=== PATIENT | female | born 1940 | race Hispanic/Latino ===

== ENCOUNTER 2016-10-02 22:36 | Emergency (ER) | payer MEDICARE ==
[2016-10-02 22:51] VITALS: BMI 32.2
[2016-10-02 22:56] VITALS: TEMP 99.2
--- NOTE | 2016-10-02 23:12 | ED PDOC ---
Arrival/HPI - General Chief Complaint: Weakness/Neurological Deficit Time Seen by Provider: 10/02/16 22:51 Historian: Patient - History of Present Illness Narrative History of Present Illness (Text): 10/02/16 22:51 Samanta Dill is a 76 year old female, whose past medical history includes arthritis and a stent, who presents to the emergency department complaining of 3 days duration of intermittent fevers accompanied by generalized weakness. Patient notes that she last took Tylenol 15:00 today. Patient denies shortness of breath, chest pain, dyspnea on exertion, or any other complaints at this time. PMD: Dr. Montes De Oca Time/Duration: < week (3 days) Symptom Onset: Gradual Symptom Course: Unchanged, Intermittent Severity Level: Mild Activities at Onset: Rest Context: Home Past Medical History - Provider Review Nursing Documentation Reviewed: Yes - Infectious Disease Hx of Infectious Diseases: None - Tetanus Immunization Tetanus Immunization: Unknown - Cardiac Hx Cardiac Disorders: Yes (CAD) Hx Hypertension: Yes Other/Comment: PT HAD STENT PLCED IN, [place] 2012 X 1 - Pulmonary Hx Respiratory Disorders: Yes Hx Chronic Obstructive Pulmonary Disease (COPD): Yes Other/Comment: SMOKES CIGARETTES H/O <PPD - Neurological Hx Neurological Disorder: Yes - HEENT Hx HEENT Disorder: Yes Hx Cataracts: Yes (RIGHT) - Renal Hx Renal Disorder: No - Endocrine/Metabolic Hx Endocrine Disorders: No - Hematological/Oncological Hx Blood Disorders: No - Integumentary Hx Dermatological Disorder: No - Musculoskeletal/Rheumatological Hx Musculoskeletal Disorders: Yes (RA) Hx Back Pain: Yes Hx Falls: Yes Other/Comment: RIGHT HIP REPLACMENT,BILATERAL KNEE REPLACEMENT - Gastrointestinal Hx Gastrointestinal Disorders: Yes (COLON CANCER/RECTAL CA) - Genitourinary/Gynecological Hx Genitourinary Disorders: No - Psychiatric Hx Psychophysiologic Disorder: No Hx Emotional Abuse: No Hx Physical Abuse: No Hx Substance Use: No Other/Comment: H/O OF SMOKING CIGARETTES QUIT 20 YRS AGO < PPD - Surgical History Hx Appendectomy: Yes Hx Cholecystectomy: Yes (patient unsure) Other/Comment: colon resection, bilaterAl knee replacement, rt hip replacement/ elvin r femur - Anesthesia Hx Anesthesia: Yes Hx Anesthesia Reactions: No - Suicidal Assessment Feels Threatened In Home Enviroment: No Family/Social History - Physician Review Nursing Documentation Reviewed: Yes Family/Social History: No Known Family HX Smoking Status: Former Smoker Hx Alcohol Use: No Hx Substance Use: No Hx Substance Use Treatment: No Allergies/Home Meds Allergies/Adverse Reactions: Allergies minocycline Allergy (Verified 07/04/15 19:43) RASH facial pigmentation Home Medications: Home Meds Medication Instructions Recorded Confirmed Atenolol 100 mg PO DAILY 12/03/11 03/26/16 Aspirin [Aspirin Chewable] 81 mg PO DAILY 04/23/13 03/26/16 Dexlansoprazole [Dexilant] 60 mg PO DAILY 04/23/13 03/26/16 Aliskiren/Amlodipine Besylate 10 mg PO DAILY 07/04/15 03/26/16 Ergocalciferol (Vitamin D2) 5,000 iu PO QWK 07/04/15 03/26/16 Folic Acid 1 mg PO DAILY 07/04/15 03/26/16 Levothyroxine Sodium 100 mcg PO DAILY 07/04/15 03/26/16 Methotrexate 25 mg PO JUAQUIN 07/04/15 03/26/16 Risedronate Sodium 150 mg PO Q30D 07/04/15 03/26/16 Simvastatin 20 mg PO DAILY 07/04/15 03/26/16 Fluticasone/Vilanterol [Breo 1 puff IH DAILY 10/03/16 10/03/16 Ellipta 100-25 Mcg INH] Teriparatide [Forteo] 20 mcg SC DAILY 10/03/16 10/03/16 Umeclidinium [place] [Incruse 1 puff IH DAILY 10/03/16 10/03/16 Ellipta] Physical Exam - Physical Exam Narrative Physical Exam (Text): - Review of Systems Constitutional: Intermittent fevers. Generalized Weakness. absent: Fatigue, Weight Change Eyes: Normal ENT: Normal Respiratory: Normal absent: SOB, Cough, Sputum Cardiovascular: Normal absent: Chest pain, Palpitations, Syncope Gastrointestinal: Normal absent: Abdominal pain, Diarrhea, Nausea, Vomiting Genitourinary: Normal. absent: Dysuria, Frequency, Hematuria Musculoskeletal: Normal. absent: Arthralgias, Back Pain, Neck Pain Skin: Normal Neurological: Normal absent: Focal Weakness Endocrine: Normal Hemo/Lymphatic: Normal Psychiatric: Normal - Physical exam Patient appears age appropriate, speaking full sentences without difficulty - Systems Exam Head: Present: Atraumatic, Normocephalic Pupils: Present: PERRL Extraocular Muscles: Present: EOMI Conjunctiva: Present: Normal Mouth: Present: Moist Mucous Membranes Neck: Present: Normal Range of Motion. No: MIDLINE TENDERNESS, Paraspinal Tenderness, JVD Respiratory/Chest: Present: Clear to Auscultation, Good Air Exchange. No: Respiratory Distress, Accessory Muscle Use, Tachypneic Cardiovascular: Present: Regular Rate and Rhythm, Normal S1, S2, Peripheral Pulses Present. No: Murmurs Abdomen: Present: Normal Bowel Sounds, No: Tenderness, Peritoneal Signs, Rebound, Guarding, Distention Back: Present: Normal Inspection. No: Midline Tenderness, Paraspinal Tenderness Upper Extremity: Present: Normal Inspection. No: Cyanosis, Edema Lower Extremity: Present: Normal Inspection. No: Edema, assymetry, tenderness Neurological: Present: GCS=15, Speech Normal, cranial nerves II through XII fully intact with no cerebellar abnormality, neuro-sensory fully intact. No focal neurological deficits. Skin: Present: Warm, Dry, Normal Color. No: Rashes Lymphatic: Present: OX3, NI, NC Psychiatric: Present: Alert, Oriented x 3, Normal Insight, Normal Concentration Vital Signs Reviewed: Yes Vital Signs Temp Pulse Resp BP Pulse Ox 10/02/16 22:56 99.2 F 60 18 165/67 H 99 Temperature: Afebrile Blood Pressure: Hypertensive Pulse: Regular Respiratory Rate: Normal Appearance: Positive for: Well-Appearing Pain Distress: None Mental Status: Positive for: Alert and Oriented X 3 Medical Decision Making ED Course and Treatment: 10/02/16 22:51 Impression: 76 year old female complaining of intermittent fevers accompanied by generalized weakness for 3 days. Pt well appearing with no acute findings on PE. Differential Diagnosis include but are not limited to: Pneumonia vs. UTI Plan: -- EKG -- Chest X-ray -- Blood Culture -- Urine Culture and Urinalysis -- Labs -- Reassess and disposition Prior Visits: Notes and results from previous visits were reviewed. Patient last seen in ED on 03/26/16 for right lateral rib pain/RUQ pain that day. Patient was discharged home. Progress Notes: EKG shows bradycardia at [address]-segment elevations. First Degree AV Block with no prior for comparison. Interpreted by me. 10/03/16 00:28 Chest xray shows no cardiomegaly, no pneumothorax, no effusion, no infiltrates. 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 Montes De Oca Pt states she understands to return to the ER right away for new or worsening symptoms or for inability to f/u with PMD or specialist as instructed. Patient states that she fully agrees with and understands discharge instructions. States that she agrees with the plan and disposition. Verbalized and repeated discharge instructions and plan. I have given the patient opportunity to ask any additional questions. - Lab Interpretations Lab Results: 10/02/16 23:40 10/02/16 23:40 Lab Results 10/02/16 23:40: PT 11.0, INR 1.02, APTT 28.5 10/02/16 23:40: WBC 7.0 D, RBC 3.78, Hgb 10.7 L, Hct 31.9 L, MCV 84.4, MCH 28.3 , MCHC 33.5, RDW 18.2 H, Plt Count 316, MPV 9.8, Gran % 69.7 H, Lymph % (Auto) 19.3 L, [place] % (Auto) 6.2 H, Eos % (Auto) 4.7, Baso % (Auto) 0.1, Gran # 4.84, Lymph # 1.3, [place] # 0.4, Eos # 0.3, Baso # 0.01 10/02/16 23:40: Sodium 131 L, Potassium 4.5, Chloride 98, Carbon Dioxide 23, Anion Gap 15, BUN 12, Creatinine 0.6, Est GFR ( Amer) > 60, Est GFR (Non- Af Amer) > 60, Random Glucose 97, Calcium 8.9, Total Bilirubin 0.5, AST 36, ALT 24, Alkaline Phosphatase 77, Lactate Dehydrogenase 624, Total Creatine Kinase 37 , Troponin I 0.02, Total Protein 7.6, Albumin 4.1, Globulin 3.5, Albumin/ Globulin Ratio 1.2 10/02/16 23:34: Urine Color Yellow, Urine Appearance Sl cloudy, Urine pH 6.0, Ur Specific [place] 1.010, Urine Protein Trace H, Urine Glucose (UA) Negative, Urine Ketones Negative, Urine Blood Small H, Urine Nitrate Negative, Urine Bilirubin Negative, Urine Urobilinogen 0.2, Ur Leukocyte Esterase Negative, Urine RBC 1 - 3, Urine WBC 0 - 2, Ur Epithelial Cells 0 - 2, Urine Bacteria Few I have reviewed the lab results: Yes - RAD Interpretation Radiology Orders: 10/02/16 23:09 CHEST PORTABLE [RAD] Stat - Scribe Statement The provider has reviewed the documentation as recorded by the Scribe Tammi Roger Provider Scribe Attestation: All medical record entries made by the Scribe were at my direction and personally dictated by me. I have reviewed the chart and agree that the record accurately reflects my personal performance of the history, physical exam, medical decision making, and the department course for this patient. I have also personally directed, reviewed, and agree with the discharge instructions and disposition. Disposition/Present on Arrival - Present on Arrival Any Indicators Present on Arrival: No History of DVT/PE: No History of Uncontrolled Diabetes: No Urinary Catheter: No History of Decub. Ulcer: No History Surgical Site Infection Following: Orthopedic Procedures - Disposition Have Diagnosis and Disposition been Completed?: Yes Diagnosis: Fever Disposition: HOME/ ROUTINE Disposition Time: 02:04 Patient Plan: Discharge Condition: GOOD Discharge Instructions (ExitCare): Fever in Adults (ED), Urinary Tract Infection in Women (ED) Additional Instructions: PLEASE RETURN TO THE EMERGENCY DEPARTMENT FOR NEW OR WORSENING SYMPTOMS. RETURN RIGHT AWAY IF YOU CANNOT FOLLOW UP WITH YOUR PRIMARY CARE DOCTOR, CLINIC, OR SPECIALIST IN 1-2 DAYS. Prescriptions: Nitrofurantoin Macrocrystals [Macrobid] 100 mg PO BID #14 cap Referrals: David Montes De Oca MD [Family Provider] - Follow up with primary
[2016-10-02 23:56] LABS: ADD MANUAL DIFF? NO
[2016-10-03 00:04] LABS: BASO # 0.01 K/mm3 (0.0-2.0); BASO % 0.1 % (0.0-3.0); EOS # 0.3 (0.0-0.7); EOS % 4.7 % (1.5-5.0); GRAN # 4.84 (1.4-6.5); GRAN % 69.7 % (50.0-68.0); HEMATOCRIT 31.9 % (36.0-48.0); LYMPH # 1.3 (1.2-3.4); LYMPH % 19.3 % (22.0-35.0); MEAN CELL VOLUME 84.4 fL (80.0-105.0); MEAN CORPUSCULAR HEMOGLOBIN 28.3 pg (25.0-35.0); MEAN CORPUSCULAR HGB CONC 33.5 g/dl (31.0-37.0); MEAN PLATELET VOLUME 9.8 fl (7.0-11.0); MONO # 0.4 (0.1-0.6); MONO % 6.2 % (1.0-6.0); PLATELET COUNT 316 10^3/uL (120.0-450.0); RED CELL DISTRIBUTION WIDTH 18.2 % (11.5-14.5)
[2016-10-03 00:05] LABS: URINE BILIRUBIN NEGATIVE (NEGATIVE); URINE BLOOD SMALL (NEGATIVE); URINE GLUCOSE (UA) NEGATIVE (NEGATIVE); URINE KETONE NEGATIVE (NEGATIVE); URINE LEUKOCYTE ESTERASE NEGATIVE Leu/uL (NEGATIVE); URINE PROTEIN TRACE mg/dL (<30 mg/dL); URINE UROBILINOGEN 0.2 E.U./dL (<1 E.U./dL)
[2016-10-03 00:17] LABS: INR 1.02 (0.93-1.08); PARTIAL THROMBOPLASTIN TIME 28.5 Seconds (23.7-30.8)
[2016-10-03 00:26] LABS: URINE APPEARANCE SL CLOUDY (CLEAR); URINE COLOR YELLOW (YELLOW)
[2016-10-03 00:39] LABS: URINE WBC 0 - 2 /hpf (0-6)
[2016-10-03 00:40] LABS: URINE EPITHELIAL CELLS 0 - 2 /hpf (0-5)
[2016-10-03 00:41] LABS: URINE BACTERIA FEW (NEG)
[2016-10-03 01:25] LABS: ALB/GLOB RATIO 1.2 (1.1-1.8); ALKALINE PHOSPHATASE 77 U/L (38-133); ALT/SGPT 24 U/L (7-56); AST/SGOT 36 U/L (15-39); BILIRUBIN,TOTAL 0.5 mg/dL (0.2-1.3); BLOOD UREA NITROGEN 12 mg/dL (7-21); CALCIUM 8.9 mg/dL (8.4-10.5); CARBON DIOXIDE 23 mmol/L (21-33); CHLORIDE 98 mmol/L (98-107); GFR AFRICAN-AMERICAN > 60; GLUCOSE,RANDOM 97 mg/dL (70-110); POTASSIUM 4.5 mmol/L (3.6-5.0); SODIUM 131 mmol/L (132-148); TOTAL PROTEIN 7.6 g/dL (5.8-8.3)
[2016-10-03 01:37] LABS: TROPONIN I 0.02 ng/mL
[2016-10-03 02:16] VITALS: BP 158/61; PULSE 61; RESP 19; O2SAT 98
--- NOTE | 2016-10-03 12:53 | RAD ---
HISTORY: cough COMPARISON: 06/04/2016 FINDINGS: LUNGS: No active pulmonary disease. PLEURA: Minimal blunting of right costophrenic angle unchanged from prior examination, likely chronic pleural thickening. CARDIOVASCULAR: Normal. OSSEOUS STRUCTURES: No significant abnormalities. VISUALIZED UPPER ABDOMEN: Normal. OTHER FINDINGS: None. IMPRESSION: No active disease.
--- NOTE | 2016-10-03 18:08 | CARD ---
APPROVED REPORT EKG Measurement Heart [id number] <Conclusion> Sinus bradycardia with 1st degree AV block Minimal voltage criteria for LVH, may be normal variant Nonspecific T wave abnormality Abnormal ECG
== END 2016-10-03 02:16 | disposition home or self-care (01) ==
LOC: ED 22:36
DX: R50.9 Fever, unspecified (principal)

== ENCOUNTER 2017-01-13 09:12 | Day surgery (SDC) | payer MEDICARE ==
[2017-01-12 15:01] VITALS: BMI 31.6
[2017-01-13 09:33] VITALS: O2SAT 100
[2017-01-13] MEDS ORDERED: Propofol 10 mg/ml Inj (20 ML) ONE (09:53)
[2017-01-13] MEDS ORDERED: ePHEDrine 50 mg/ml Inj ONE (10:04)
[2017-01-13] MEDS ORDERED: Sodium Chloride 0.9% 1,000 ML IV SCH (10:45)
[2017-01-13 11:26] VITALS: PULSE 54; RESP 18; TEMP 97.6
[2017-01-13 11:51] VITALS: BP 152/71
== END 2017-01-13 12:22 | disposition home or self-care (01) ==
LOC: ENDO 09:12
PROVIDERS: ATTEND Internal Medicine Gastroenterology
DX: D50.9 Iron deficiency anemia, unspecified (principal); K29.50 Unspecified chronic gastritis without bleeding; K20.9 Esophagitis, unspecified; K64.8 Other hemorrhoids; K63.89 Other specified diseases of intestine; M06.9 Rheumatoid arthritis, unspecified; I25.10 Atherosclerotic heart disease of native coronary artery without angina pectoris; Z98.49 Cataract extraction status, unspecified eye
CPT/HCPCS: 43239; 45378; 88305; 88312; 88342; J2704; J7040 ×2

== ENCOUNTER 2017-05-12 10:58 | Day surgery (SDC) | payer MEDICARE ==
[2017-05-12 11:37] LABS: BASO # 0.03 K/mm3 (0.0-2.0); BASO % 0.4 % (0.0-3.0); EOS # 0.3 (0.0-0.7); EOS % 3.9 % (1.5-5.0); GRAN # 7.02 (1.4-6.5); GRAN % 82.6 % (50.0-68.0); HEMOGLOBIN 10.5 g/dL (12.0-16.0); LYMPH # 0.7 (1.2-3.4); LYMPH % 8.2 % (22.0-35.0); MEAN CELL VOLUME 86.1 fl (80.0-105.0); MEAN CORPUSCULAR HGB CONC 32.5 g/dl (31.0-37.0); MEAN PLATELET VOLUME 9.5 fl (7.0-11.0); MONO # 0.4 (0.1-0.6); MONO % 4.9 % (1.0-6.0); RBC 3.75 10^6/uL (3.5-6.1); WHITE BLOOD COUNT 8.5 10^3/ul (4.5-11.0)
[2017-05-12 11:44] LABS: BLOOD UREA NITROGEN 14 mg/dL (7-21); CALCIUM 9.7 mg/dL (8.4-10.5); GFR AFRICAN-AMERICAN > 60; GFR NON-AFRICAN AMERICAN > 60
[2017-05-12 11:47] VITALS: RESP 18; TEMP 98.2; O2SAT 98
[2017-05-12 11:48] LABS: INR 1.03 (0.93-1.08); PARTIAL THROMBOPLASTIN TIME 28.6 Seconds (25.1-36.5); PROTHROMBIN TIME 11.8 SECONDS (9.4-12.5)
[2017-05-12 11:53] VITALS: BMI 32.0
[2017-05-12] MEDS ORDERED: HEPARIN SODIUM/NS 1,000 ML IV ONE (12:41)
[2017-05-12] MEDS ORDERED: Lidocaine 2% Inj (20ml) ONE (12:41)
[2017-05-12 14:15] VITALS: BP 138/64; PULSE 57
--- NOTE | 2017-05-12 19:08 | VASCULAR ---
PROCEDURE: Ultrasound and fluoroscopically placed left upper extremity PICC line. HISTORY: Osteomyelitis right femur. Long-term IV antibiotics. Needs PICC line. PHYSICIAN(S): Carlin Kelley MD. TECHNIQUE: The relative risks and indications of the procedure were explained to the patient and consent obtained. The patient was placed supine on the arteriogram table and the left arm prepped and draped in the usual sterile fashion. A tourniquet was applied to the left axilla. 1% Xylocaine was used to anesthetize the skin and soft tissues at the puncture site above the elbow. The basilic vein was punctured under direct ultrasound guidance with a micropuncture set. A 0.018 guidewire was advanced centrally and used to measure the length to the SVC/RA junction. A 5 Citizen [place] single-lumen PICC line 44 cm long was advanced to the SVC/RA junction. The catheter was flushed and secured. The patient tolerated the procedure well. IMPRESSION: 1. Ultrasound and fluoroscopically placed left upper extremity PICC line. A 5 Citizen [place] single-lumen PICC line 44 cm long was advanced to the SVC/RA junction.
== END 2017-05-12 14:35 | disposition home or self-care (01) ==
LOC: OPSURG 10:58
PROVIDERS: ATTEND Radiology Vascular & Interventional Radiology
DX: M86.9 Osteomyelitis, unspecified (principal); Z79.2 Long term (current) use of antibiotics; I25.10 Atherosclerotic heart disease of native coronary artery without angina pectoris; I10 Essential (primary) hypertension
CPT/HCPCS: 36415; 36569; 76937; 77001; 80048; 85025; 85610; 85730; C1751; J1644

== ENCOUNTER 2018-01-06 02:00 | Inpatient (IN) | payer MEDICARE ==
[2018-01-06 02:02] VITALS: BMI 32.0
--- NOTE | 2018-01-06 02:34 | ED PDOC ---
Arrival/HPI <HemaRam - Last Filed: 01/08/18 11:17> <Arnaldo Dorantes - Last Filed: 01/10/18 11:10> - General Time Seen by Provider: 01/06/18 02:05 - History of Present Illness Narrative History of Present Illness (Text): 01/08/18 11:17 Pt is a 77 yo F with pmhx of CAD, HTN, RA, osteomyelitis who came to ED for cough and weakness. She reports the cough is dry and she has been having subjective fevers and congestion. She called her PMD who prescribed her a Z-pack which she started taking at 10 AM this morning. She was not feeling well so she decided to come to ED. Patient is also on Keflex for R knee osteo which she was diagnosed at [facility]. She denies chest pain, shortness of breath, nausea/vomiting/diarrhea, numbness/tingling, dysuria or hematuria. (Leanna Garrido) 01/08/18 11:17 Pt is a 77 yo F with pmhx of CAD, HTN, RA, osteomyelitis who came to ED for cough and weakness. She reports the cough is dry and she has been having subjective fevers and congestion. She called her PMD who prescribed her a Z-pack which she started taking at 10 AM this morning. She was not feeling well so she decided to come to ED. Patient is also on Keflex for R knee osteo which she was diagnosed at [facility]. She denies chest pain, shortness of breath, nausea/vomiting/diarrhea, numbness/tingling, dysuria or hematuria. (Arnaldo Dorantes) Past Medical History - Infectious Disease Hx of Infectious Diseases: None - Tetanus Immunization Tetanus Immunization: Unknown - Cardiac Hx Hypertension: Yes Other/Comment: cardiac stent - Pulmonary Hx Respiratory Disorders: Yes Hx Chronic Obstructive Pulmonary Disease (COPD): Yes Other/Comment: SMOKES CIGARETTES H/O <PPD - Neurological Hx Paralysis: No - HEENT Hx HEENT Disorder: Yes Hx Cataracts: Yes (RIGHT) - Renal Hx Renal Disorder: No - Endocrine/Metabolic Hx Endocrine Disorders: No - Hematological/Oncological Hx Blood Transfusions: Yes Hx Blood Transfusion Reaction: No - Integumentary Hx Dermatological Disorder: No - Musculoskeletal/Rheumatological Hx Musculoskeletal Disorders: Yes (RA) - Gastrointestinal Hx Gastrointestinal Disorders: Yes (COLON CANCER/RECTAL CA) - Genitourinary/Gynecological Hx Genitourinary Disorders: No - Psychiatric Hx Emotional Abuse: No Hx Physical Abuse: No Hx Substance Use: No - Surgical History Hx Appendectomy: Yes Hx Cholecystectomy: Yes (patient unsure) Other/Comment: colon resection, bilaterAl knee replacement, rt hip replacement/elvin r femur - Anesthesia Hx Anesthesia Reactions: No Hx Malignant Hyperthermia: No - Suicidal Assessment Feels Threatened In Home Enviroment: No <Leanna Garrido - Last Filed: 01/08/18 11:17> - Provider Review Nursing Documentation Reviewed: Yes <Arnaldo Dorantes - Last Filed: 01/10/18 11:10> Family/Social History Smoking Status: Former Smoker Hx Alcohol Use: No Hx Substance Use: No Hx Substance Use Treatment: No <Leanna Garrido - Last Filed: 01/08/18 11:17> - Physician Review Nursing Documentation Reviewed: Yes Family/Social History: Unknown Family HX <Arnaldo Dorantes - Last Filed: 01/10/18 11:10> Allergies/Home Meds <Leanna Garrido - Last Filed: 01/08/18 11:17> <Arnaldo Dorantes - Last Filed: 01/10/18 11:10> Allergies/Adverse Reactions: Allergies minocycline Allergy (Verified 01/06/18 02:12) RASH facial pigmentation Home Medications: Home Meds Medication Instructions Recorded Confirmed Atenolol 100 mg PO DAILY 12/03/11 05/12/17 Aspirin [Aspirin Chewable] 81 mg PO DAILY 04/23/13 05/12/17 Dexlansoprazole [Dexilant] 60 mg PO DAILY 04/23/13 05/12/17 Aliskiren/Amlodipine Besylate 10 mg PO DAILY 07/04/15 05/12/17 Methotrexate 25 mg PO JUAQUIN 07/04/15 05/12/17 Fluticasone/Vilanterol [Breo 1 puff IH DAILY 10/03/16 05/12/17 Ellipta 100-25 Mcg INH] Teriparatide [Forteo] 20 mcg SC DAILY 10/03/16 05/12/17 Umeclidinium Atco [Incruse 1 puff IH DAILY 10/03/16 05/12/17 Ellipta] Nitroglycerin [Nitrostat] 0.4 mg SL PRN PRN 01/13/17 05/12/17 Cholecalciferol [Vitamin D 1000 IU] 50,000 unit PO Q2W 05/12/17 05/12/17 Folic Acid 1 mg PO DAILY 05/12/17 05/12/17 Levothyroxine [Synthroid] 100 mcg PO DAILY 05/12/17 05/12/17 Simvastatin [Zocor] 20 mg PO DAILY 05/12/17 05/12/17 Review of Systems - Physician Review All systems were reviewed & negative as marked: Yes - Review of Systems Constitutional: Fatigue, Fevers Respiratory: SOB, Cough. absent: Sputum, Wheezing Cardiovascular: absent: Chest Pain, Palpitations, Edema <Leanna Garrido - Last Filed: 01/08/18 11:17> Physical Exam Temperature: Febrile (101.3) Blood Pressure: Hypertensive (158/69) Pulse: Regular Respiratory Rate: Normal Appearance: Positive for: Well-Appearing, Non-Toxic, Comfortable Pain Distress: None Mental Status: Positive for: Alert and Oriented X 3 - Systems Exam Head: Present: Atraumatic, Normocephalic Pupils: Present: PERRL Extroacular Muscles: Present: EOMI Mouth: Present: Moist Mucous Membranes Pharnyx: Present: Normal. No: ERYTHEMA, EXUDATE Respiratory/Chest: Present: Clear to Auscultation, Good Air Exchange. No: Respiratory Distress, Accessory Muscle Use, Wheezes, Rales, Rhonchi Cardiovascular: Present: Regular Rate and Rhythm, Normal S1, S2. No: Murmurs, Rub, Gallop Abdomen: Present: Normal Bowel Sounds. No: Tenderness, Distention, Peritoneal Signs, Rebound Lower Extremity: Present: Normal Inspection, NORMAL PULSES. No: Edema, CALF TENDERNESS Neurological: Present: GCS=15, CN II-XII Intact, Speech Normal Skin: Present: Warm, Dry, Normal Color. No: Rashes Lymphatic: No: Cervical Adenopathy Psychiatric: Present: Alert, Oriented x 3, Normal Insight, Normal Concentration <Leanna Garrido - Last Filed: 01/08/18 11:17> Vital Signs Reviewed: Yes <Arnaldo Dorantes - Last Filed: 01/10/18 11:10> Vital Signs Temp Pulse Resp BP Pulse Ox 01/06/18 06:43 99.1 F 68 17 122/8 L 100 01/06/18 06:07 98.4 F 60 18 144/88 97 01/06/18 04:26 59 L 16 134/72 98 01/06/18 04:12 99.1 F 01/06/18 02:34 101.3 F H 66 17 158/69 H 96 01/06/18 02:10 17 96 - Lab Interpretations Microbiology Results: Microbiology Results 01/06/18 03:50 Blood Blood Culture - Preliminary NO GROWTH AFTER 4 DAYS 01/06/18 03:10 Blood Blood Culture - Preliminary NO GROWTH AFTER 4 DAYS Lab Results: 01/06/18 06:50 01/06/18 06:50 Lab Results 01/06/18 06:50: Procalcitonin < 0.05 L 01/06/18 06:50: WBC 11.7 H, RBC 3.54, Hgb 9.0 L, Hct 28.4 L, MCV 80.2, MCH 25.4, MCHC 31.7, RDW 20.9 H, Plt Count 314, MPV 9.2 01/06/18 06:50: Sodium 128 L, Potassium 3.9, Chloride 94 L, Carbon Dioxide 23, Anion Gap 14, BUN 11, Creatinine 0.5 L, Est GFR ( Amer) > 60, Est GFR (Non-Af Amer) > 60, Random Glucose 122 H, Calcium 8.5, Magnesium 1.4 L, Total Bilirubin 0.4, AST 23, ALT 10, Alkaline Phosphatase 69, Total Protein 6.5, Albumin 3.5, Globulin 3.0, Albumin/Globulin Ratio 1.1 01/06/18 04:20: Urine Color Yellow, Urine Appearance Clear, Urine pH 6.0, Ur Specific [place] 1.020, Urine Protein 100 H, Urine Glucose (UA) Negative, Urine Ketones Negative, Urine Blood Small H, Urine Nitrate Negative, Urine Bilirubin Negative, Urine Urobilinogen 0.2, Ur Leukocyte Esterase Negative, Urine RBC 1 - 3, Urine WBC 0 - 2, Ur Epithelial Cells 0 - 2, Urine Bacteria Rare 01/06/18 03:15: Influenza Typ A,B (EIA) Negative for flu a/b 01/06/18 02:35: pO2 81 H, VBG pH 7.42, VBG pCO2 39.0 L, VBG HCO3 25.3, VBG Total CO2 26.5, VBG O2 Sat (Calc) 96.9 H, VBG Base Excess 0.8, VBG Potassium 4.6, Glucose 122 H, Lactate 0.9, FiO2 21.0, Sodium 127.0 L, Chloride 95.0 L, Venous B lood Potassium 4.6 01/06/18 02:32: Sodium 128 L, Potassium 4.5, Chloride 94 L, Carbon Dioxide 23, Anion Gap 16, BUN 13, Creatinine 0.5 L, Est GFR ( Amer) > 60, Est GFR (Non-Af Amer) > 60, Random Glucose 122 H, Calcium 8.9, Phosphorus 3.6, Magnesium 1.4 L, Total Bilirubin 0.5, AST 35, ALT 16, Alkaline Phosphatase 70, Troponin I 0.02, Total Protein 7.7, Albumin 4.1, Globulin 3.6, Albumin/Globulin Ratio 1.2 01/06/18 02:32: WBC 14.3 H D, RBC 4.04, Hgb 10.7 L, Hct 32.3 L, MCV 80.0 D, MCH 26.5, MCHC 33.1, RDW 21.1 H, Plt Count 346, MPV 9.2, Gran % 92.0 H, Lymph % (Auto) 3.7 L, [place] % (Auto) 2.9, Eos % (Auto) 1.2 L, Baso % (Auto) 0.2, Gran # 13.15 H, Lymph # (Auto) 0.5 L, [place] # (Auto) 0.4, Eos # (Auto) 0.2, Baso # (Auto) 0.03, Neutrophils % (Manual) 88 H, Band Neutrophils % 3 H, Lymphocytes % (Manual) 7 L, Monocytes % (Manual) 1, Eosinophils % (Manual) 1, Platelet Evaluation Normal, Anisocytosis (manual) 1+ - RAD Interpretation Radiology Orders: 01/06/18 02:22 CHEST PORTABLE [RAD] Stat - Medication Orders Current Medication Orders: Discontinued Medications Acetaminophen (Tylenol 325mg Tab) 650 mg PO STAT STA Stop: 01/06/18 02:36 Last Admin: 01/06/18 02:47 Dose: 650 mg Acetaminophen (Tylenol 325mg Tab) 650 mg PO Q4H PRN PRN Reason: Pain, Mild (1-3) Acetaminophen (Tylenol 325mg Tab) 650 mg PO Q4H PRN PRN Reason: Pain, Mild (1-3) Last Admin: 01/07/18 17:39 Dose: 650 mg MAR Pain/Vitals Document 01/07/18 17:39 DSZ (Rec: 01/07/18 17:40 [id number] Pain Reassessment Is This A Pain ReAssessment? No Sleep Is patient sleeping during reassessment? No Presence of Pain Presence of Pain Yes Pain Scale Used [facility] Used Numeric Location Pain Location Body Site Generalized Description Intermittent Intensity 3 Scale Used Numeric Pain Behavior Withdrawal from Touch Aggravating Factors Contant Alleviating Factors Medication Re-Assess: [facility] Pain/Vitals Document 01/07/18 18:39 DSZ (Rec: 01/07/18 19:05 DSZ [place] [id number]) Pain Reassessment Is This A Pain ReAssessment? Yes Presence of Pain Presence of Pain Yes Pain Scale Used Protocol: PSCALES Pain Scale Used Numeric Location Pain Location Body Site Generalized Description Intermittent Intensity 1 Scale Used Numeric Pain Behavior Grasping Site Alleviating Factors Medication Amlodipine Besylate (Norvasc) 10 mg PO DAILY [facility] Amlodipine Besylate (Norvasc) 10 mg PO ONCE ONE Stop: 01/08/18 08:27 Last Admin: 01/08/18 09:15 Dose: 10 mg MAR Pulse and Blood Pressure Document 01/08/18 09:15 DSZ (Rec: 01/08/18 09:15 [facility]-[id number]) Pulse Pulse Rate (60-90) 74 Blood Pressure Blood Pressure (100/60-150/90) 158/55 Aspirin (Aspirin Chewable) 81 mg PO DAILY [facility] Last Admin: 01/08/18 09:13 Dose: 81 mg Atenolol (Tenormin) 100 mg PO DAILY [facility] Last Admin: 01/08/18 09:14 Dose: 100 mg MAR Pulse and Blood Pressure Document 01/08/18 09:14 DSZ (Rec: 01/08/18 09:15 [facility]-[id number]) Pulse Pulse Rate (60-90) 74 Blood Pressure Blood Pressure (100/60-150/90) 158/55 Atorvastatin Calcium (Lipitor) [address] [facility] Last Admin: 01/07/18 21:22 Dose: 10 mg Benzonatate (Tessalon Perles) 100 mg PO STAT STA Stop: 01/06/18 06:10 Last Admin: 01/06/18 06:16 Dose: 100 mg Folic Acid (Folic Acid) 1 mg PO DAILY [facility]IA C Last Admin: 01/08/18 09:14 Dose: 1 mg Guaifenesin (Robitussin) 200 mg PO Q4H PRN PRN Reason: Cough and congestion Last Admin: 01/08/18 09:13 Dose: 200 mg Piperacillin Sod/Tazobactam Sod (Zosyn 3.375 In Ns 100ml) 100 mls @ 200 mls/hr IVPB STAT STA; Protocol Stop: 01/06/18 05:08 Last Admin: 01/06/18 04:55 Dose: 200 mls/hr eMAR Start Stop Document 01/06/18 04:55 IT (Rec: 01/06/18 04:56 IT [id number]) Intravenous Solution Start Date 01/06/18 Start Time 04:56 Sodium Chloride (Sodium Chloride 0.9%) 1,000 mls @ 100 mls/hr IV .Q10H STA Stop: 01/06/18 15:40 Last Admin: 01/06/18 06:31 Dose: 100 mls/hr eMAR Start Stop Document 01/06/18 06:31 IT (Rec: 01/06/18 06:31 IT [id number]) Intravenous Solution Start Date 01/06/18 Start Time 06:31 Magnesium Sulfate/Dextrose (Magnesium Sulfate 1 Gm/100 Ml D5w) 1 gm in 100 mls @ 100 mls/hr IVPB ONCE ONE Stop: 01/06/18 07:47 Last Admin: 01/06/18 10:50 Dose: 100 mls/hr eMAR Start Stop Document 01/06/18 10:50 TAV (Rec: 01/06/18 10:50 TAV [id number]) Intravenous Solution Start Date 01/06/18 Start Time 10:50 End Date 01/06/18 End time 11:50 Total Infusion Time 60 Ceftriaxone Sodium (Rocephin 1 Gram Ivpb) 1 gm in 100 mls @ 100 mls/hr IVPB DAILY MARIA C; Protocol Stop: 01/16/18 19:33 Last Admin: 01/08/18 09:14 Dose: 100 mls/hr eMAR Start Stop Document 01/08/18 09:14 DSZ (Rec: 01/08/18 09:14 DSZ [id number]) Intravenous Solution Start Date 01/08/18 Start Time 09:14 Levofloxacin (Levaquin) 500 mg PO DAILY [facility]; Protocol Stop: 01/11/18 11:51 Last Admin: 01/07/18 10:34 Dose: 500 mg Levothyroxine Sodium (Synthroid) 100 mcg PO ACB MARIA C Last Admin: 01/08/18 08:30 Dose: 100 mcg Non-Formulary Medication (Fluticasone/Vilanterol [Breo Ellipta 100-25 Mcg Inh]) 1 puff IH DAILY [facility] Last Admin: 01/07/18 10:35 Dose: 1 puff Non-Formulary Medication (Teriparatide [Forteo]) 20 mcg SC DAILY [facility] Last Admin: 01/07/18 10:37 Dose: Not Given Non-Admin Reason: not available Ondansetron HCl (Zofran Inj) 4 mg IVP ONCE ONE Stop: 01/07/18 11:25 Last Admin: 01/07/18 11:47 Dose: 4 mg IVP Administration Document 01/07/18 11:47 DSZ (Rec: 01/07/18 11:47 DSZ [id number]) Charges for Administration # of IVP Administrations 1 - PA / PROFILE GRINDER / Resident Statement MIKE has reviewed & agrees with the documentation as recorded. MIKE has examined the patient and agrees with the treatment plan. <Arnaldo Dorantes - Last Filed: 01/10/18 11:10> Disposition/Present on Arrival - Present on Arrival Any Indicators Present on Arrival: No History of DVT/PE: No History of Uncontrolled Diabetes: No Urinary Catheter: No History of Decub. Ulcer: No History Surgical Site Infection Following: Orthopedic Procedures - Disposition Have Diagnosis and Disposition been Completed?: Yes Disposition Time: 04:00 <Leanna Garrido - Last Filed: 01/08/18 11:17> <Arnaldo Dorantes - Last Filed: 01/10/18 11:10> - Disposition Diagnosis: Weakness, Cough Disposition: HOSPITALIZED Condition: GOOD
[2018-01-06 02:50] LABS: BASO # 0.03 K/mm3 (0.0-2.0); BASO % 0.2 % (0.0-3.0); EOS # 0.2 (0.0-0.7); EOS % 1.2 % (1.5-5.0); GRAN # 13.15 (1.4-6.5); HEMOGLOBIN 10.7 g/dL (12.0-16.0); LYMPH # 0.5 (1.2-3.4); LYMPH % 3.7 % (22.0-35.0); MEAN CORPUSCULAR HEMOGLOBIN 26.5 pg (25.0-35.0); MEAN CORPUSCULAR HGB CONC 33.1 g/dl (31.0-37.0); MEAN PLATELET VOLUME 9.2 fl (7.0-11.0); MONO # 0.4 (0.1-0.6); MONO % 2.9 % (1.0-6.0); PLATELET COUNT 346 10^3/uL (120.0-450.0); RBC 4.04 10^6/uL (3.5-6.1); RED CELL DISTRIBUTION WIDTH 21.1 % (11.5-14.5); WHITE BLOOD COUNT 14.3 10^3/ul (4.5-11.0)
[2018-01-06 02:56] LABS: VENOUS BLOOD GAS BASE EXCESS 0.8 mmol/L (0.0-2.0); VENOUS BLOOD GAS PO2 81 mm/Hg (30-55); VENOUS BLOOD PH 7.42 (7.32-7.43)
[2018-01-06 02:58] LABS: ALB/GLOB RATIO 1.2 (1.1-1.8); ALBUMIN 4.1 g/dL (3.0-4.8); BLOOD UREA NITROGEN 13 mg/dL (7-21); CALCIUM 8.9 mg/dL (8.4-10.5); GFR NON-AFRICAN AMERICAN > 60
[2018-01-06 03:02] LABS: ALT/SGPT 16 U/L (7-56); AST/SGOT 35 U/L (14-36)
[2018-01-06 03:09] LABS: TROPONIN I 0.02 ng/mL
[2018-01-06 04:27] LABS: URINE BILIRUBIN NEGATIVE (NEGATIVE); URINE BLOOD SMALL (NEGATIVE); URINE GLUCOSE (UA) NEGATIVE (NEGATIVE); URINE LEUKOCYTE ESTERASE NEGATIVE Leu/uL (NEGATIVE); URINE PROTEIN 100 mg/dL (<30 mg/dL); URINE UROBILINOGEN 0.2 E.U./dL (<1 E.U./dL)
[2018-01-06 04:30] LABS: ANISOCYTOSIS 1+; BAND 3 % (0-2); EOSINOPHIL 1 % (0.0-3.0); LYMPHOCYTE 7 % (22.0-35.0); MONOCYTE 1 % (1.0-6.0); NEUTROPHIL 88 % (50.0-70.0); PLATELET ESTIMATE NORMAL (NORMAL)
[2018-01-06 04:31] LABS: URINE COLOR YELLOW (YELLOW)
[2018-01-06 04:32] LABS: URINE APPEARANCE CLEAR (CLEAR)
[2018-01-06] MEDS ORDERED: Piperacillin/Tazobact 3.375 gm 100 ML IVPB STA (04:39)
[2018-01-06 04:56] LABS: URINE BACTERIA RARE (NEG); URINE EPITHELIAL CELLS 0 - 2 /hpf (0-5); URINE WBC 0 - 2 /hpf (0-6)
[2018-01-06] MEDS ORDERED: Sodium Chloride 0.9% 1,000 ML IV STA (05:41)
[2018-01-06] MEDS ORDERED: Magnesium Sulfate 1 gm in D5W 1 GM/100 ML BAG IVPB ONE (06:48)
[2018-01-06 07:22] LABS: MEAN CELL VOLUME 80.2 fl (80.0-105.0); MEAN CORPUSCULAR HEMOGLOBIN 25.4 pg (25.0-35.0); MEAN CORPUSCULAR HGB CONC 31.7 g/dl (31.0-37.0); MEAN PLATELET VOLUME 9.2 fl (7.0-11.0); RBC 3.54 10^6/uL (3.5-6.1); RED CELL DISTRIBUTION WIDTH 20.9 % (11.5-14.5); WHITE BLOOD COUNT 11.7 10^3/ul (4.5-11.0)
[2018-01-06 07:36] LABS: ALB/GLOB RATIO 1.1 (1.1-1.8); ALBUMIN 3.5 g/dL (3.0-4.8); ALT/SGPT 10 U/L (7-56); AST/SGOT 23 U/L (14-36); BLOOD UREA NITROGEN 11 mg/dL (7-21); CALCIUM 8.5 mg/dL (8.4-10.5); GFR NON-AFRICAN AMERICAN > 60
--- NOTE | 2018-01-06 07:48 | CP.PCM.HP ---
<Sheyla Zayas - Last Filed: 01/06/18 13:33> History of Present Illness - History of Present Illness History of Present Illness: H&P for Arely Wright PGY3 This is a 77yo female with past medical history of CAD, HTN, RA, R knee osteomyelitis (on Keflex) who came to ED for cough and weakness x 1 day. Patient reports the cough is dry and she has been having subjective fevers and congestion. She called Dr. Montes De Oca who prescribed her a Z-pack. She was not feeling well so she decided to come to ED. Patient's daughter is at bedside who reports she also has a upper respiratory infection and thinks she gave it to her mom. Patient is also on Keflex for R knee osteo which she was diagnosed [place] [facility] She has been on Keflex for about 3 weeks. She denies chest pain, shortness of breath, nausea/vomiting/diarrhea, numbness/tingling, dysuria or hematuria. Past medical history: CAD, HTN, hypothyroidism, RA, R knee osteomyelitis (on Keflex) Past surgical history: R hip replacement, b/l knee replacement, hysterectomy, gastric bypass Home meds: Reviewed as per MAR Allergies: Minocycline Social history: Quit smoking 25yrs ulrich. Denies EtOH or drug use. Family history: Father: of cerebral hemorrhage (age 55) Mother: of old age (age 90) Present on Admission - Present on Admission Any Indicators Present on Admission: No Review of Systems - Review of Systems All systems: reviewed and no additional remarkable complaints except Review of Systems: 12 point ROS reviewed as per HPI and is otherwise Past Patient History - Infectious Disease Hx of Infectious Diseases: None - Tetanus Immunizations Tetanus Immunization: Unknown - Past Social History Smoking Status: Former Smoker - CARDIAC Hx Hypertension: Yes Other/Comment: cardiac stent - PULMONARY Hx Respiratory Disorders: Yes Hx Chronic Obstructive Pulmonary Disease (COPD): Yes Other/Comment: SMOKES CIGARETTES H/O <PPD - NEUROLOGICAL Hx Paralysis: No - HEENT Hx HEENT Problems: Yes Hx Cataracts: Yes (RIGHT) - RENAL Hx Chronic Kidney Disease: No - ENDOCRINE/METABOLIC Hx Endocrine Disorders: No - HEMATOLOGICAL/ONCOLOGICAL Hx Blood Transfusions: Yes Hx Blood Transfusion Reaction: No - INTEGUMENTARY Hx Dermatological Problems: No - MUSCULOSKELETAL/RHEUMATOLOGICAL Hx Musculoskeletal Disorders: Yes (RA) - GASTROINTESTINAL Hx Gastrointestinal Disorders: Yes (COLON CANCER/RECTAL CA) - GENITOURINARY/GYNECOLOGICAL Hx Genitourinary Disorders: No - PSYCHIATRIC Hx Emotional Abuse: No Hx Physical Abuse: No Hx Substance Use: No - SURGICAL HISTORY Hx Appendectomy: Yes Hx Cholecystectomy: Yes (patient unsure) Other/Comment: colon resection, bilaterAl knee replacement, rt hip rep lacement/elvin r femur - ANESTHESIA Hx Anesthesia Reactions: No Hx Malignant Hyperthermia: No Meds Allergies/Adverse Reactions: Allergies Allergy/AdvReac Type Severity Reaction Status Date / Time minocycline Allergy RASH Verified 01/06/18 02:12 Physical Exam - Constitutional Appears: No Acute Distress - Head Exam Head Exam: ATRAUMATIC, NORMAL INSPECTION, NORMOCEPHALIC - Eye Exam Eye Exam: PERRL Pupil Exam: NORMAL ACCOMODATION, PERRL - ENT Exam ENT Exam: Mucous Membranes Moist Additional comments: maxillary sinus tenderness - Respiratory Exam Respiratory Exam: Clear to Auscultation Bilateral, NORMAL BREATHING PATTERN. absent: Rales, Rhonchi, Wheezes - Cardiovascular Exam Cardiovascular Exam: REGULAR RHYTHM, +S1, +S2. absent: Gallop, Irregular Rhythm, Rubs, Systolic Murmur - GI/Abdominal Exam GI & Abdominal Exam: Normal Bowel Sounds, Soft. absent: Guarding, Rebound, Tenderness - Extremities Exam Extremities exam: Positive for: normal inspection. Negative for: calf tenderness, pedal edema - Neurological Exam Neurological exam: Alert, CN II-XII Intact, Oriented x3 - Psychiatric Exam Psychiatric exam: Normal Affect, Normal Mood - Skin Skin Exam: Dry, Normal Color Results - Vital Signs Recent Vital Signs: Last Vital Signs Temp 99.1 F 01/06/18 06:43 Pulse 68 01/06/18 06:43 Resp 17 01/06/18 06:43 BP 122/8 L 01/06/18 06:43 Pulse Ox 100 01/06/18 06:43 - Labs Result Diagrams: 01/06/18 06:50 01/06/18 06:50 Labs: Laboratory Results - last 24 hr 01/06/18 01/06/18 01/06/18 02:32 02:32 02:35 WBC 14.3 H D RBC 4.04 Hgb 10.7 L Hct 32.3 L MCV 80.0 D MCH 26.5 MCHC 33.1 RDW 21.1 H Plt Count 346 MPV 9.2 Gran % 92.0 H Lymph % (Auto) 3.7 L [place] % (Auto) 2.9 Eos % (Auto) 1.2 L Baso % (Auto) 0.2 Gran # 13.15 H Lymph # (Auto) 0.5 L [place] # (Auto) 0.4 Eos # (Auto) 0.2 Baso # (Auto) 0.03 Neutrophils % (Manual) 88 H Band Neutrophils % 3 H Lymphocytes % (Manual) 7 L Monocytes % (Manual) 1 Eosinophils % (Manual) 1 Platelet Evaluation Normal Anisocytosis (manual) 1+ pO2 81 H VBG pH 7.42 VBG pCO2 39.0 L VBG HCO3 25.3 VBG Total CO2 26.5 VBG O2 Sat (Calc) 96.9 H VBG Base Excess 0.8 VBG Potassium 4.6 Glucose 122 H Lactate 0.9 FiO2 21.0 Sodium 128 L 127.0 L Potassium 4.5 Chloride 94 L 95.0 L Carbon Dioxide 23 Anion Gap 16 BUN 13 Creatinine 0.5 L Est GFR ( Amer) > 60 Est GFR (Non-Af Amer) > 60 Random Glucose 122 H Calcium 8.9 Phosphorus 3.6 Magnesium 1.4 L Total Bilirubin 0.5 AST 35 ALT 16 Alkaline Phosphatase 70 Troponin I 0.02 Total Protein 7.7 Albumin 4.1 Globulin 3.6 Albumin/Globulin Ratio 1.2 Venous Blood Potassium 4.6 Urine Color Urine Appearance Urine pH Ur Specific [place] Urine Protein Urine Glucose (UA) Urine Ketones Urine Blood Urine Nitrate Urine Bilirubin Urine Urobilinogen Ur Leukocyte Esterase Urine RBC Urine WBC Ur Epithelial Cells Urine Bacteria Influenza Typ A,B (EIA) 01/06/18 01/06/18 01/06/18 03:15 04:20 06:50 WBC RBC Hgb Hct MCV MCH MCHC RDW Plt Count MPV Gran % Lymph % (Auto) [place] % (Auto) Eos % (Auto) Baso % (Auto) Gran # Lymph # (Auto) [place] # (Auto) Eos # (Auto) Baso # (Auto) Neutrophils % (Manual) Band Neutrophils % Lymphocytes % (Manual) Monocytes % (Manual) Eosinophils % (Manual) Platelet Evaluation Anisocytosis (manual) pO2 VBG pH VBG pCO2 VBG HCO3 VBG Total CO2 VBG O2 Sat (Calc) VBG Base Excess VBG Potassium Glucose Lactate FiO2 Sodium 128 L Potassium 3.9 Chloride 94 L Carbon Dioxide 23 Anion Gap 14 BUN 11 Creatinine 0.5 L Est GFR ( Amer) > 60 Est GFR (Non-Af Amer) > 60 Random Glucose 122 H Calcium 8.5 Phosphorus Magnesium 1.4 L Total Bilirubin 0.4 AST 23 ALT 10 Alkaline Phosphatase 69 Troponin I Total Protein 6.5 Albumin 3.5 Globulin 3.0 Albumin/Globulin Ratio 1.1 Venous Blood Potassium Urine Color Yellow Urine Appearance Clear Urine pH 6.0 Ur Specific [place] 1.020 Urine Protein 100 H Urine Glucose (UA) Negative Urine Ketones Negative Urine Blood Small H Urine Nitrate Negative Urine Bilirubin Negative Urine Urobilinogen 0.2 Ur Leukocyte Esterase Negative Urine RBC 1 - 3 Urine WBC 0 - 2 Ur Epithelial Cells 0 - 2 Urine Bacteria Rare Influenza Typ A,B (EIA) Negative for flu a/b 01/06/18 06:50 WBC 11.7 H RBC 3.54 Hgb 9.0 L Hct 28.4 L MCV 80.2 MCH 25.4 MCHC 31.7 RDW 20.9 H Plt Count 314 MPV 9.2 Gran % Lymph % (Auto) [place] % (Auto) Eos % (Auto) Baso % (Auto) Gran # Lymph # (Auto) [place] # (Auto) Eos # (Auto) Baso # (Auto) Neutrophils % (Manual) Band Neutrophils % Lymphocytes % (Manual) Monocytes % (Manual) Eosinophils % (Manual) Platelet Evaluation Anisocytosis (manual) pO2 VBG pH VBG pCO2 VBG HCO3 VBG Total CO2 VBG O2 Sat (Calc) VBG Base Excess VBG Potassium Glucose Lactate FiO2 Sodium Potassium Chloride Carbon Dioxide Anion Gap BUN Creatinine Est GFR ( Amer) Est GFR (Non-Af Amer) Random Glucose Calcium Phosphorus Magnesium Total Bilirubin AST ALT Alkaline Phosphatase Troponin I Total Protein Albumin Globulin Albumin/Globulin Ratio Venous Blood Potassium Urine Color Urine Appearance Urine pH Ur Specific [place] Urine Protein Urine Glucose (UA) Urine Ketones Urine Blood Urine Nitrate Urine Bilirubin Urine Urobilinogen Ur Leukocyte Esterase Urine RBC Urine WBC Ur Epithelial Cells Urine Bacteria Influenza Typ A,B (EIA) Assessment & Plan - Assessment and Plan (Free Text) Assessment: This is a 77yo female with past medical history of CAD, hypothryoidism, HTN, RA, R knee osteomyelitis (on Keflex) who was admitted for 1. URI - Chest Xr did not show evidence of pneumonia 2. CAD 3. HTN 4. R knee osteomyelitis - pt has reportedly been on Keflex x 3 weeks 5. RA 6. Hypothyroidism Plan: ID consulted and placed patient on Levaquin. Septic work up pending. Chest CT ordered to rule out pneumonia. Tylenol prn fever. Will continue home meds ASA, Atenolol, Lipitor, Folic Acid, and Synthroid. Patient is on IV fluids. Case seen, discussed and reviewed with Dr. Espinoza. Arely Zayas PGY3 - Date & Time Date: 01/06/18 Time: 13:47 <Marcin Espinoza - Last Filed: 01/06/18 18:17> Results - Vital Signs Recent Vital Signs: Last Vital Signs Temp 98.7 F 01/06/18 14:00 Pulse 20 L 01/06/18 14:00 Resp 70 H 01/06/18 14:00 BP 183/70 H 01/06/18 14:00 Pulse Ox 97 01/06/18 14:00 - Labs Result Diagrams: 01/06/18 06:50 01/06/18 06:50 Labs: Laboratory Results - last 24 hr 01/06/18 01/06/18 01/06/18 02:32 02:32 02:35 WBC 14.3 H D RBC 4.04 Hgb 10.7 L Hct 32.3 L MCV 80.0 D MCH 26.5 MCHC 33.1 RDW 21.1 H Plt Count 346 MPV 9.2 Gran % 92.0 H Lymph % (Auto) 3.7 L [place] % (Auto) 2.9 Eos % (Auto) 1.2 L Baso % (Auto) 0.2 Gran # 13.15 H Lymph # (Auto) 0.5 L [place] # (Auto) 0.4 Eos # (Auto) 0.2 Baso # (Auto) 0.03 Neutrophils % (Manual) 88 H Band Neutrophils % 3 H Lymphocytes % (Manual) 7 L Monocytes % (Manual) 1 Eosinophils % (Manual) 1 Platelet Evaluation Normal Anisocytosis (manual) 1+ pO2 81 H VBG pH 7.42 VBG pCO2 39.0 L VBG HCO3 25.3 VBG Total CO2 26.5 VBG O2 Sat (Calc) 96.9 H VBG Base Excess 0.8 VBG Potassium 4.6 Glucose 122 H Lactate 0.9 FiO2 21.0 Sodium 128 L 127.0 L Potassium 4.5 Chloride 94 L 95.0 L Carbon Dioxide 23 Anion Gap 16 BUN 13 Creatinine 0.5 L Est GFR ( Amer) > 60 Est GFR (Non-Af Amer) > 60 Random Glucose 122 H Calcium 8.9 Phosphorus 3.6 Magnesium 1.4 L Total Bilirubin 0.5 AST 35 ALT 16 Alkaline Phosphatase 70 Troponin I 0.02 Total Protein 7.7 Albumin 4.1 Globulin 3.6 Albumin/Globulin Ratio 1.2 Procalcitonin Venous Blood Potassium 4.6 Urine Color Urine Appearance Urine pH Ur Specific [place] Urine Protein Urine Glucose (UA) Urine Ketones Urine Blood Urine Nitrate Urine Bilirubin Urine Urobilinogen Ur Leukocyte Esterase Urine RBC Urine WBC Ur Epithelial Cells Urine Bacteria Influenza Typ A,B (EIA) Ur L.pneumophila Ag 01/06/18 01/06/18 01/06/18 03:15 04:20 06:50 WBC RBC Hgb Hct MCV MCH MCHC RDW Plt Count MPV Gran % Lymph % (Auto) [place] % (Auto) Eos % (Auto) Baso % (Auto) Gran # Lymph # (Auto) [place] # (Auto) Eos # (Auto) Baso # (Auto) Neutrophils % (Manual) Band Neutrophils % Lymphocytes % (Manual) Monocytes % (Manual) Eosinophils % (Manual) Platelet Evaluation Anisocytosis (manual) pO2 VBG pH VBG pCO2 VBG HCO3 VBG Total CO2 VBG O2 Sat (Calc) VBG Base Excess VBG Potassium Glucose Lactate FiO2 Sodium 128 L Potassium 3.9 Chloride 94 L Carbon Dioxide 23 Anion Gap 14 BUN 11 Creatinine 0.5 L Est GFR ( Amer) > 60 Est GFR (Non-Af Amer) > 60 Random Glucose 122 H Calcium 8.5 Phosphorus Magnesium 1.4 L Total Bilirubin 0.4 AST 23 ALT 10 Alkaline Phosphatase 69 Troponin I Total Protein 6.5 Albumin 3.5 Globulin 3.0 Albumin/Globulin Ratio 1.1 Procalcitonin Venous Blood Potassium Urine Color Yellow Urine Appearance Clear Urine pH 6.0 Ur Specific [place] 1.020 Urine Protein 100 H Urine Glucose (UA) Negative Urine Ketones Negative Urine Blood Small H Urine Nitrate Negative Urine Bilirubin Negative Urine Urobilinogen 0.2 Ur Leukocyte Esterase Negative Urine RBC 1 - 3 Urine WBC 0 - 2 Ur Epithelial Cells 0 - 2 Urine Bacteria Rare Influenza Typ A,B (EIA) Negative for flu a/b Ur L.pneumophila Ag 01/06/18 01/06/18 01/06/18 06:50 06:50 13:00 WBC 11.7 H RBC 3.54 Hgb 9.0 L Hct 28.4 L MCV 80.2 MCH 25.4 MCHC 31.7 RDW 20.9 H Plt Count 314 MPV 9.2 Gran % Lymph % (Auto) [place] % (Auto) Eos % (Auto) Baso % (Auto) Gran # Lymph # (Auto) [place] # (Auto) Eos # (Auto) Baso # (Auto) Neutrophils % (Manual) Band Neutrophils % Lymphocytes % (Manual) Monocytes % (Manual) Eosinophils % (Manual) Platelet Evaluation Anisocytosis (manual) pO2 VBG pH VBG pCO2 VBG HCO3 VBG Total CO2 VBG O2 Sat (Calc) VBG Base Excess VBG Potassium Glucose Lactate FiO2 Sodium Potassium Chloride Carbon Dioxide Anion Gap BUN Creatinine Est GFR ( Amer) Est GFR (Non-Af Amer) Random Glucose Calcium Phosphorus Magnesium Total Bilirubin AST ALT Alkaline Phosphatase Troponin I Total Protein Albumin Globulin Albumin/Globulin Ratio Procalcitonin < 0.05 L Venous Blood Potassium Urine Color Urine Appearance Urine pH Ur Specific [place] Urine Protein Urine Glucose (UA) Urine Ketones Urine Blood Urine Nitrate Urine Bilirubin Urine Urobilinogen Ur Leukocyte Esterase Urine RBC Urine WBC Ur Epithelial Cells Urine Bacteria Influenza Typ A,B (EIA) Ur L.pneumophila Ag Negative Assessment & Plan - Assessment and Plan (Free Text) Plan: Pt seen and examined. I have reviewed the note of the certified medical coding specialist and agree with it. I have discussed the assessment and plan with the resident. I have reviewed the patient's labs and medications. Pt with fever. She will need CT of chest to evaluate for pneumonia. I spoke to daughter about pt's history. She has history of R leg osteo. She is on IVF. She can take her synthroid for her hypothyroidism.
--- NOTE | 2018-01-06 08:35 | RAD ---
Date of service: 01/06/2018 HISTORY: Cough, SOB COMPARISON: Right ribs with chest 12/20/2017. FINDINGS: LUNGS: No active pulmonary disease. PLEURA: No significant pleural effusion identified, no pneumothorax apparent. CARDIOVASCULAR: Normal. OSSEOUS STRUCTURES: No significant abnormalities. VISUALIZED UPPER ABDOMEN: Normal. OTHER FINDINGS: None. IMPRESSION: No interval acute cardiopulmonary disease appreciated.
--- NOTE | 2018-01-06 09:07 | CARD ---
APPROVED REPORT Date of service: 01/06/2018 EKG Measurement Heart [id number] <Conclusion> Normal sinus rhythm with 1st degree AVB Minimal voltage criteria for LVH, may be normal variant ST & T wave abnormality c/w ischemia
[2018-01-06] MEDS: Levothyroxine 100 MCG TAB PO SCH (10:47)
[2018-01-06] MEDS: Non Formulary Medication (Fluticasone/Vilanterol [Breo Ellipta 100-25 Mcg Inh] 1 PUFF) IH SCH (10:53)
[2018-01-06] MEDS ORDERED: cefTRIAXone 1 gm 1 GM/100 ML BAG IVPB SCH (11:45)
[2018-01-06] MEDS: TERIPARATIDE 20 MCG SC SCH (13:13)
--- NOTE | 2018-01-06 13:13 | CON ---
DATE: 01/06/2018 LOCATION: The patient is seen in room 569, bed 1 this morning. CHIEF COMPLAINT: Weakness and cough for several days. HISTORY OF PRESENT ILLNESS: This is a 77-year-old female who was seen earlier today is admitted to the Emergency Room, was seen by Riddhi Quigley in the Emergency Room. The patient with a history of chronic obstructive lung disease, cataracts, hypertension, rheumatoid arthritis, hypothyroidism, colon cancer, osteomyelitis of the right leg is admitted now to the Emergency Room, now complaining of cough and weakness. The patient had been having that for several days. She was given a Z-AMBROSE; however, she only took one dose of it and she noticed that the weakness and cough has gotten more worse and she did have fevers, occasional chills. The cough is nonproductive, no chest pain and there is mild shortness of breath. She had congestion. REVIEW OF SYSTEMS: Reveals the twelve point review of systems is performed. She denies any nausea, vomiting, abdominal pain, dysuria or frequency and no headaches or blurred vision. No dysuria or frequency, PAST MEDICAL HISTORY: Significant for colon cancer, coronary artery disease, rheumatoid arthritis, hypertension, chronic obstructive lung disease, cataract and right leg osteomyelitis. PAST SURGICAL HISTORY: Significant for cardiac stents and right hip replacement, bilateral knee replacement and hysterectomy. ALLERGIES: THE PATIENT IS ALLERGIC TO MINOCYCLINE. MEDICATIONS AT HOME: Reviewed and they include the patient to be on Zocor, Synthroid, atenolol. She was on Z-AMBROSE, but only took 1 dose. Also on aspirin, Nitrostat, methotrexate, Dexilant. PHYSICAL EXAMINATION: GENERAL: She is in bed, in no acute distress, answering questions slowly. VITAL SIGNS: Temperature of 101.3 and heart rate was 60; however, it dropped to 56; respiratory rate of 18 with a blood pressure of 120/88, it was up to 158/69. The patient was saturating at 97% on room air with a BMI of 28. HEENT: Examination is unremarkable. NECK: Supple. HEART: Normal S1, S2. LUNGS: Have decreased breath sounds. ABDOMEN: Soft, nontender. No rebound, no guarding, no masses. LABORATORY EXAMINATION: Reveals a white count of 14,300, hemoglobin of 10, platelets of 346. Chemistries are noted, BUN of 13, creatinine of 0.3 and urinalysis is unremarkable. The patient has had influenza, which is negative. Microbiology is pending. The patient had a urine culture was positive for group B strep in 2017 and blood culture is positive for one of coag negative staph in 2016 and the patient had a chest x-ray in the Emergency Room, was reported to be negative, had an EKG that showed a QTc of 412. Urinalysis is unremarkable. ASSESSMENT AND PLAN: A 77-year-old female, ex-smoker with chronic obstructive lung disease, cataract, hypertension, arthritis, hypothyroidism presenting with SIRS (systemic inflammatory response syndrome), pulmonary symptoms with cough and fever of 101 and white count of 14,600. SIRS, systemic inflammatory response syndrome and must also rule out community-acquired pneumonia and gastrointestinal cause. At this time, since the x-ray is negative, we will order a sputum culture, blood culture and procalcitonin, urine for Legionella antigen and start the patient on ceftriaxone and Levaquin and order a CAT scan of the chest to rule out an infiltrate and we will make further recommendations upon availability of initial results. We will follow closely with you. Denis Miller MD
[2018-01-06] MEDS: levoFLOXacin 500 MG TAB PO SCH (13:14)
--- NOTE | 2018-01-06 13:28 | CT ---
Date of service: 01/06/2018 PROCEDURE: CT Chest without contrast HISTORY: r/o infiltrate COMPARISON: None available. TECHNIQUE: Contiguous axial images were obtained through the chest without intravenous contrast enhancement. Sagittal and coronal reconstructions were performed. Radiation dose (DLP): 479.37 mGy-cm. This CT exam was performed using one or more of the following dose reduction techniques: Automated exposure control, adjustment of the mA and/or kV according to patient size, and/or use of iterative reconstruction technique. FINDINGS: LUNGS: No acute airspace disease appreciated. Trace peripheral fibrotic change are identified. Central airways are clear. No definitive dominant mass bilaterally. MEDIASTINUM: Unremarkable thoracic aorta. No aneurysm. Cardiomegaly and mildly prominent main pulmonary artery measuring up to 3.1 cm greatest caliber compared to 3.0 cm ascending thoracic aorta. No significant lymphadenopathy. Extensive coronary artery calcifications are identified. PLEURA: No pleural fluid. No pneumothorax. BONES: No fracture. No destructive lesion. UPPER ABDOMEN: Grossly unremarkable. OTHER FINDINGS: None. IMPRESSION: 1. Limited peripheral pulmonary fibrosis appreciated. 2. No acute infiltrate bilaterally, significant lymphadenopathy, pleural or pericardial effusion. 3. Cardiomegaly and extensive coronary artery calcifications are identified. 4. Potential for pulmonary artery hypertension. No pulmonary vascular congestion appreciated.
[2018-01-06] MEDS ORDERED: Barium Sulfate Susp 2.1% w/v, 2.0% w/w 450 mL Bottle PO ONE (15:04)
[2018-01-06] MEDS ORDERED: Iohexol 350 MG/100 ML VIAL ONE (18:49)
[2018-01-06] MEDS: guaiFENesin 200 mg/10 ml Syrup UD PO PRN (23:41)
[2018-01-07 07:28] LABS: MEAN CELL VOLUME 80.5 fl (80.0-105.0); MEAN CORPUSCULAR HEMOGLOBIN 26.7 pg (25.0-35.0); MEAN CORPUSCULAR HGB CONC 33.2 g/dl (31.0-37.0); MEAN PLATELET VOLUME 9.2 fl (7.0-11.0); RBC 3.74 10^6/uL (3.5-6.1); RED CELL DISTRIBUTION WIDTH 21.1 % (11.5-14.5); WHITE BLOOD COUNT 9.1 10^3/ul (4.5-11.0)
[2018-01-07 07:46] LABS: ALB/GLOB RATIO 1.1 (1.1-1.8); ALBUMIN 3.4 g/dL (3.0-4.8); ALT/SGPT 20 U/L (7-56); AST/SGOT 24 U/L (14-36); BLOOD UREA NITROGEN 6 mg/dL (7-21); CALCIUM 8.3 mg/dL (8.4-10.5); GFR NON-AFRICAN AMERICAN > 60
[2018-01-07] MEDS: Levothyroxine 100 MCG TAB PO SCH (10:33)
[2018-01-07] MEDS: levoFLOXacin 500 MG TAB PO SCH (10:34)
[2018-01-07] MEDS: Non Formulary Medication (Fluticasone/Vilanterol [Breo Ellipta 100-25 Mcg Inh] 1 PUFF) IH SCH (10:35)
[2018-01-07] MEDS: TERIPARATIDE 20 MCG SC SCH (10:37)
[2018-01-07] MEDS ORDERED: Barium Sulfate Susp 2.1% w/v, 2.0% w/w 450 mL Bottle PO ONE (13:44)
--- NOTE | 2018-01-07 16:48 | CP.PCM.PN ---
<Sheyla Zayas - Last Filed: 01/07/18 16:45> Subjective - Date & Time of Evaluation Date of Evaluation: 01/07/18 Time of Evaluation: 07:00 - Subjective Subjective: Medicine Progress Note for Arely Wright PGY3 Patient seen and examined at bedside. There were no acute overnight events as per nursing staff. Patient reports that her cough has improved. She did not have any more fevers overnight. She reports having some chest pain when she coughs, but otherwise feels a little better. She was unable to tolerate the PO contrast for CT because it makes her nauseous. She denies chest pain, shortness of breath, nausea/vomiting/diarrhea, fever/chills, numbness/tingling, dysuria or hematuria. Objective - Vital Signs/Intake and Output Vital Signs (last 24 hours): Temp Pulse Resp BP Pulse Ox 97.5 F L 62 18 172/52 H 100 01/07/18 14:00 01/07/18 14:00 01/07/18 14:00 01/07/18 14:00 01/07/18 14:00 Intake and Output: 01/07/18 01/07/18 06:59 18:59 Intake Total 600 1020 Balance 600 1020 - Medications Medications: Current Medications Acetaminophen (Tylenol 325mg Tab) 650 mg PO Q4H PRN PRN Reason: Pain, Mild (1-3) Last Admin: 01/07/18 04:50 Dose: 650 mg Aspirin (Aspirin Chewable) 81 mg PO DAILY [facility] Last Admin: 01/07/18 10:34 Dose: 81 mg Atenolol (Tenormin) 100 mg PO DAILY [facility] Last Admin: 01/07/18 10:33 Dose: 100 mg Atorvastatin Calcium (Lipitor) 10 mg PO HS [facility] Last Admin: 01/06/18 21:21 Dose: 10 mg Folic Acid (Folic Acid) 1 mg PO DAILY [facility] Last Admin: 01/07/18 10:34 Dose: 1 mg Guaifenesin (Robitussin) 200 mg PO Q4H PRN PRN Reason: Cough and congestion Last Admin: 01/06/18 23:41 Dose: 200 mg Levothyroxine Sodium (Synthroid) 100 mcg PO ACB [facility] Last Admin: 01/07/18 10:33 Dose: 100 mcg Non-Formulary Medication (Fluticasone/Vilanterol [Breo Ellipta 100-25 Mcg Inh]) 1 puff IH DAILY [facility] Last Admin: 01/07/18 10:35 Dose: 1 puff Non-Formulary Medication (Teriparatide [Forteo]) 20 mcg SC DAILY [facility] Last Admin: 01/07/18 10:37 Dose: Not Given - Labs Labs: 01/07/18 07:00 01/07/18 07:00 - Constitutional Appears: No Acute Distress - Head Exam Head Exam: ATRAUMATIC, NORMAL INSPECTION, NORMOCEPHALIC - Eye Exam Eye Exam: Normal appearance, PERRL Pupil Exam: NORMAL ACCOMODATION - ENT Exam ENT Exam: Mucous Membranes Moist - Neck Exam Neck Exam: Full ROM - Respiratory Exam Respiratory Exam: Clear to Ausculation Bilateral, NORMAL BREATHING PATTERN. absent: Rales, Rhonchi, Wheezes - Cardiovascular Exam Cardiovascular Exam: REGULAR RHYTHM, +S1, +S2. absent: Gallop, Rubs, Murmur - GI/Abdominal Exam GI & Abdominal Exam: Soft, Normal Bowel Sounds. absent: Rigid, Tenderness, Mass, Rebound - Extremities Exam Extremities Exam: Normal Inspection. absent: Calf Tenderness, Pedal Edema - Neurological Exam Neurological Exam: Alert, Awake, CN II-XII Intact, Oriented x3 - Skin Skin Exam: Dry, Warm Assessment and Plan - Assessment and Plan (Free Text) Assessment: This is a 77yo female with past medical history of CAD, hypothryoidism, HTN, RA, R knee osteomyelitis (on Keflex) who was admitted for 1. Fever and Cough - secondary to URI v. other etiology - Chest Xr did not show evidence of pneumonia - CT chest negative for pneumonia 2. CAD 3. HTN 4. R knee osteomyelitis - pt has reportedly been on Keflex x 3 weeks 5. RA 6. Hypothyroidism Plan: ID on consult. CT A/P ordered to rule out other etiology of fever. Septic work up negative thus far. Tylenol and robitussin prn. Continue home medications. Patient is tolerating diet. Case seen, discussed and reviewed with Dr. Espinoza. Arely Zayas PGY3 <Marcin Espinoza - Last Filed: 01/07/18 18:30> Objective - Vital Signs/Intake and Output Vital Signs (last 24 hours): Temp Pulse Resp BP Pulse Ox 97.5 F L 62 18 172/52 H 100 01/07/18 14:00 01/07/18 14:00 01/07/18 14:00 01/07/18 14:00 01/07/18 14:00 Intake and Output: 01/07/18 01/07/18 06:59 18:59 Intake Total 600 1020 Balance 600 1020 - Medications Medications: Current Medications Acetaminophen (Tylenol 325mg Tab) 650 mg PO Q4H PRN PRN Reason: Pain, Mild (1-3) Last Admin: 01/07/18 17:39 Dose: 650 mg Aspirin (Aspirin Chewable) 81 mg PO DAILY [facility] Last Admin: 01/07/18 10:34 Dose: 81 mg Atenolol (Tenormin) 100 mg PO DAILY [facility] Last Admin: 01/07/18 10:33 Dose: 100 mg Atorvastatin Calcium (Lipitor) 10 mg PO HS [facility] Last Admin: 01/06/18 21:21 Dose: 10 mg Folic Acid (Folic Acid) 1 mg PO DAILY [facility] Last Admin: 01/07/18 10:34 Dose: 1 mg Guaifenesin (Robitussin) 200 mg PO Q4H PRN PRN Reason: Cough and congestion Last Admin: 01/07/18 17:39 Dose: 200 mg Levothyroxine Sodium (Synthroid) 100 mcg PO ACB [facility] Last Admin: 01/07/18 10:33 Dose: 100 mcg Non-Formulary Medication (Fluticasone/Vilanterol [Breo Ellipta 100-25 Mcg Inh]) 1 puff IH DAILY [facility] Last Admin: 01/07/18 10:35 Dose: 1 puff Non-Formulary Medication (Teriparatide [Forteo]) 20 mcg SC DAILY [facility] Last Admin: 01/07/18 10:37 Dose: Not Given - Labs Labs: 01/07/18 07:00 01/07/18 07:00 Assessment and Plan - Assessment and Plan (Free Text) Plan: Pt seen and examined. I have reviewed the note of the medical insurance clerk and agree with it. I have discussed the assessment and plan with the resident. I have reviewed the patient's labs and medications. Pt with fever that is improved. CT abd/pelvis ordered with contrast. BCx are negative. Pt most likely has a URI. She is on Abx.
[2018-01-07] MEDS: guaiFENesin 200 mg/10 ml Syrup UD PO PRN ×2 (17:39→22:57)
[2018-01-07] MEDS ORDERED: cefTRIAXone 1 gm 1 GM/100 ML BAG IVPB SCH (19:32)
[2018-01-07 21:44] VITALS: RESP 20; TEMP 98.4; O2SAT 97
--- NOTE | 2018-01-08 00:16 | PN ---
DATE: 01/07/2018 SUBJECTIVE: Patient is in room 569, bed 1. Was seen earlier today. The patient having nausea, vomiting. Her fevers have subsided. PHYSICAL EXAMINATION: VITAL SIGNS: Temperature is 97, blood pressure is 170/50, respiratory rate 18. HEENT: Unremarkable. NECK: Supple. LUNGS: Have decreased breath sounds. HEART: Normal S1, S2. ABDOMEN: Soft, nontender. LABORATORY EXAMINATION: Reveals a white count is down to 9.1, hemoglobin of 10. Chemistries are noted. Procalcitonin is negative. Urinalysis is noted. Serology for influenza is negative. Urine for Legionella antigen is negative. Microbiology reveals the blood cultures are no growth. Urine cultures pending. The patient's CT scan of the chest reveals no pneumonia. ASSESSMENT AND PLAN: A 77-year-old female, ex-smoker, chronic obstructive lung disease, cataract, hypertension, arthritis, hypothyroidism, presenting with systemic inflammatory response syndrome, pulmonary symptoms with leukocytosis, temperature of 101, white count of 14,600 and with a negative CAT scan of the chest, now has developed nausea and vomiting contributing to the Levaquin. We will discontinue Levaquin and continue the ceftriaxone for now. Although, all cultures are negative. Urine cultures are pending. Currently on ceftriaxone and we will discontinue Levaquin. Review of orders reveals the patient was given Zosyn yesterday in the emergency room and received ceftriaxone yesterday also, did not receive any ceftriaxone as Pharmacy has discontinued. We will order ceftriaxone again today pending panculture and etiology of the leukocytosis and fevers not entirely clear. If the nausea and vomiting persists, we will order a CT of the abdomen and pelvis. Case discussed with the patient and patient's niece who is at the bedside at length. We will check on the CAT scan of the abdomen and pelvis and we will follow closely with you. Denis Miller MD
[2018-01-08] MEDS ORDERED: Iohexol 350 MG/100 ML VIAL ONE (06:32)
[2018-01-08] MEDS: Levothyroxine 100 MCG TAB PO SCH (08:30)
[2018-01-08] MEDS: guaiFENesin 200 mg/10 ml Syrup UD PO PRN (09:13)
[2018-01-08 09:19] VITALS: BP 158/55; PULSE 74
--- NOTE | 2018-01-08 09:43 | CT ---
Date of service: 01/08/2018 PROCEDURE: CT Abdomen and Pelvis with contrast HISTORY: r/o intra-abdominal infection COMPARISON: Abdomen and pelvis CT without contrast 01/21/2012. TECHNIQUE: Contrast dose: Omnipaque 350, 100 cc Radiation dose: Total exam DLP = 869.80 mGy-cm. This CT exam was performed using one or more of the following dose reduction techniques: Automated exposure control, adjustment of the mA and/or kV according to patient size, and/or use of iterative reconstruction technique. FINDINGS: LOWER THORAX: Cardiomegaly is reiterated. Limited bibasilar dependent atelectasis. Scoliotic thoracolumbar spinal deformity distorts the thoracic cage. Linear atelectasis or fibrosis in the bilateral lung bases. Prior left pleural effusion appears resolved. LIVER: Unremarkable. No gross lesion or ductal dilatation. GALLBLADDER AND BILE DUCTS: Prior cholecystectomy reiterated. Stable mild prominence of the common bile duct likely post cholecystectomy and age related. No radiodense choledocholithiasis. PANCREAS: Unremarkable. No gross lesion or ductal dilatation. SPLEEN: Unremarkable. ADRENALS: No mass identified bilaterally. KIDNEYS AND URETERS: Stable simple cyst lower pole left kidney 5.8 cm greatest dimension with multiple tiny lucencies scattered at the mid and upper pole left kidney too small to characterize. No obstructive uropathy bilaterally. No parenchymal findings at the right kidney either. VASCULATURE: Unremarkable. No aortic aneurysm. BOWEL: Stomach is collapsed. No bowel obstruction appreciable. No measure edema including in the mesentery local to small and large bowel. There is a tiny umbilical hernia containing fat and partially involving a small short segment of small bowel without incarceration. Extensive sigmoid diverticular changes are appreciated without acute diverticulitis evident. Scar at the right lower quadrant anterior abdominal wall reflects residual from prior surgery/infection. APPENDIX: Normal appendix. PERITONEUM: Unremarkable. No free fluid. No free air. LYMPH NODES: Unremarkable. No enlarged lymph nodes. BLADDER: Unremarkable. REPRODUCTIVE: Prior hysterectomy. No suspicious adnexal findings. Artifact from right total replacement hardware obscures imaging through the pelvis. BONES: No acute fracture. OTHER FINDINGS: None. IMPRESSION: 1. No abscess, ascites or other definite inflammatory changes throughout the abdomen or pelvis. 2. Sigmoid diverticulosis without diverticulitis. 3. Prior cholecystectomy. 4. Prior hysterectomy. 5. Tiny umbilical hernia contains some fat and minimal portion of mid small bowel without incarceration or obstruction. 6. Other lesser findings as discussed above.
--- NOTE | 2018-01-08 10:15 | CP.PCM.DIS ---
<ChanaSheyla - Last Filed: 01/08/18 10:10> Provider - Provider Date of Admission: 01/06/18 10:00 Attending physician: Marcin Espinoza MD Primary care physician: David Montes De Oca MD Consults: ID: Dr. Miller Time Spent in preparation of Discharge (in minutes): 35 Hospital Course - Lab Results Lab Results: Micro Results 01/06/18 03:50 Blood Blood Culture - Preliminary NO GROWTH AFTER 48 HOURS 01/06/18 03:10 Blood Blood Culture - Preliminary NO GROWTH AFTER 48 HOURS 01/07/18 15:50 Sputum Gram Stain - Final Most Recent Lab Values WBC 9.1 10^3/ul (4.5-11.0) D 01/07/18 07:00 RBC 3.74 10^6/uL (3.5-6.1) 01/07/18 07:00 Hgb 10.0 g/dL (12.0-16.0) L 01/07/18 07:00 Hct 30.1 % (36.0-48.0) L 01/07/18 07:00 MCV 80.5 fl (80.0-105.0) 01/07/18 07:00 MCH 26.7 pg (25.0-35.0) 01/07/18 07:00 MCHC 33.2 g/dl (31.0-37.0) 01/07/18 07:00 RDW 21.1 % (11.5-14.5) H 01/07/18 07:00 Plt Count 286 10^3/uL (120.0-450.0) 01/07/18 07:00 MPV 9.2 fl (7.0-11.0) 01/07/18 07:00 Gran % 92.0 % (50.0-68.0) H 01/06/18 02:32 Lymph % (Auto) 3.7 % (22.0-35.0) L 01/06/18 02:32 [place] % (Auto) 2.9 % (1.0-6.0) 01/06/18 02:32 Eos % (Auto) 1.2 % (1.5-5.0) L 01/06/18 02:32 Baso % (Auto) 0.2 % (0.0-3.0) 01/06/18 02:32 Gran # 13.15 (1.4-6.5) H 01/06/18 02:32 Lymph # (Auto) 0.5 (1.2-3.4) L 01/06/18 02:32 [place] # (Auto) 0.4 (0.1-0.6) 01/06/18 02:32 Eos # (Auto) 0.2 (0.0-0.7) 01/06/18 02:32 Baso # (Auto) 0.03 K/mm3 (0.0-2.0) 01/06/18 02:32 Neutrophils % (Manual) 88 % (50.0-70.0) H 01/06/18 02:32 Band Neutrophils % 3 % (0-2) H 01/06/18 02:32 Lymphocytes % (Manual) 7 % (22.0-35.0) L 01/06/18 02:32 Monocytes % (Manual) 1 % (1.0-6.0) 01/06/18 02:32 Eosinophils % (Manual) 1 % (0.0-3.0) 01/06/18 02:32 Platelet Evaluation Normal (NORMAL) 01/06/18 02:32 Anisocytosis (manual) 1+ 01/06/18 02:32 pO2 81 mm/Hg (30-55) H 01/06/18 02:35 VBG pH 7.42 (7.32-7.43) 01/06/18 02:35 VBG pCO2 39.0 (40-60) L 01/06/18 02:35 VBG HCO3 25.3 mmol/l (21-28) 01/06/18 02:35 VBG Total CO2 26.5 mmol.L (22-28) 01/06/18 02:35 VBG O2 Sat (Calc) 96.9 % (40-65) H 01/06/18 02:35 VBG Base Excess 0.8 mmol/L (0.0-2.0) 01/06/18 02:35 VBG Potassium 4.6 mmol/L (3.6-5.2) 01/06/18 02:35 Sodium 127.0 mmol/L (132-148) L 01/06/18 02:35 Chloride 95.0 mmol/L (98-107) L 01/06/18 02:35 Glucose 122 mg/dl (65-105) H 01/06/18 02:35 Lactate 0.9 mmol/L (0.7-2.1) 01/06/18 02:35 FiO2 21.0 % 01/06/18 02:35 Sodium 129 mmol/L (132-148) L 01/07/18 07:00 Potassium 4.0 mmol/L (3.6-5.0) 01/07/18 07:00 Chloride 97 mmol/L (98-107) L 01/07/18 07:00 Carbon Dioxide 23 mmol/L (21-33) 01/07/18 07:00 Anion Gap 13 (10-20) 01/07/18 07:00 BUN 6 mg/dL (7-21) L 01/07/18 07:00 Creatinine 0.5 mg/dl (0.7-1.2) L 01/07/18 07:00 Est GFR ( Amer) > 60 01/07/18 07:00 Est GFR (Non-Af Amer) > 60 01/07/18 07:00 Random Glucose 103 mg/dL (70-110) 01/07/18 07:00 Calcium 8.3 mg/dL (8.4-10.5) L 01/07/18 07:00 Phosphorus 3.6 mg/dL (2.5-4.5) 01/06/18 02:32 Magnesium 1.4 mg/dL (1.7-2.2) L 01/06/18 06:50 Total Bilirubin 0.2 mg/dL (0.2-1.3) 01/07/18 07:00 AST 24 U/L (14-36) 01/07/18 07:00 ALT 20 U/L (7-56) 01/07/18 07:00 Alkaline Phosphatase 69 U/L (38-126) 01/07/18 07:00 Troponin I 0.02 ng/mL 01/06/18 02:32 Total Protein 6.6 g/dL (5.8-8.3) 01/07/18 07:00 Albumin 3.4 g/dL (3.0-4.8) 01/07/18 07:00 Globulin 3.2 gm/dL 01/07/18 07:00 Albumin/Globulin Ratio 1.1 (1.1-1.8) 01/07/18 07:00 Procalcitonin < 0.05 NG/ML (0.19-0.49) L 01/06/18 06:50 Venous Blood Potassium 4.6 mmol/L (3.6-5.2) 01/06/18 02:35 Urine Color Yellow (YELLOW) 01/06/18 04:20 Urine Appearance Clear (CLEAR) 01/06/18 04:20 Urine pH 6.0 (4.7-8.0) 01/06/18 04:20 Ur Specific Chalmers 1.020 (1.005-1.035) 01/06/18 04:20 Urine Protein 100 mg/dL (<30 mg/dL) H 01/06/18 04:20 Urine Glucose (UA) Negative mg/dL (NEGATIVE) 01/06/18 04:20 Urine Ketones Negative mg/dL (NEGATIVE) 01/06/18 04:20 Urine Blood Small (NEGATIVE) H 01/06/18 04:20 Urine Nitrate Negative (NEGATIVE) 01/06/18 04:20 Urine Bilirubin Negative (NEGATIVE) 01/06/18 04:20 Urine Urobilinogen 0.2 E.U./dL (<1 E.U./dL) 01/06/18 04:20 Ur Leukocyte Esterase Negative Jim/uL (NEGATIVE) 01/06/18 04:20 Urine RBC 1 - 3 /hpf (0-2) 01/06/18 04:20 Urine WBC 0 - 2 /hpf (0-6) 01/06/18 04:20 Ur Epithelial Cells 0 - 2 /hpf (0-5) 01/06/18 04:20 Urine Bacteria Rare (NEG) 01/06/18 04:20 Influenza Typ A,B (EIA) Negative for flu a/b (NEGATIVE) 01/06/18 03:15 Ur L.pneumophila Ag Negative (NEGATIVE) 01/06/18 13:00 - Hospital Course Hospital Course: This is a 77yo female with past medical history of CAD, hypothryoidism, HTN, RA, R knee osteomyelitis (on Keflex) who was admitted for fever secondary to URI. ID on consult. Patient was started on antibiotics. CT chest did not show evidence of pneumonia. CT A/P did not show any evidence of infection/inflammation. Patient remained stable throughout her stay. She will continue her home medications. She has been taking Keflex at home since October for her R leg osteo. She will continue her Kelfex; WBC trended down and patient remained afebrile for past 2 days. She will get Phenergan cough syrup for cough. She will follow up with Dr. Montes De Oca as outpatient. Discussed discharge plan with niece and patient. They verbalized and agreed with discharge plan. - Date & Time of H&P Date of H&P: 01/06/18 Time of H&P: 08:00 Discharge Exam - Head Exam Head Exam: ATRAUMATIC, NORMAL INSPECTION, NORMOCEPHALIC - Eye Exam Eye Exam: Normal appearance, PERRL Pupil Exam: NORMAL ACCOMODATION, PERRL - ENT Exam ENT Exam: Mucous Membranes Moist - Respiratory Exam Respiratory Exam: Clear to PA & Lateral, NORMAL BREATHING PATTERN, UNREMARKABLE. absent: Rhonchi, Wheezes, Respiratory Distress - Cardiovascular Exam Cardiovascular Exam: REGULAR RHYTHM, +S1, +S2. absent: Gallop, Rubs, Systolic Murmur - GI/Abdominal Exam GI & Abdominal Exam: Normal Bowel Sounds, Rebound, Soft, Unremarkable. absent: Rigid, Tenderness - Extremities Exam Extremities exam: normal inspection - Neurological Exam Neurological exam: Alert, CN II-XII Intact, Oriented x3 - Psychiatric Exam Psychiatric exam: Normal Affect, Normal Mood - Skin Skin Exam: Dry, Warm Discharge Plan - Discharge Medications Prescriptions: Promethazine [Phenergan Syrup] 5 ml PO Q8H PRN #1 bottle PRN Reason: Cough - Follow Up Plan Condition: GOOD Disposition: HOME/ ROUTINE Instructions: Cough in Adults, Heart Failure, Adult (DC), Sepsis, Adult (DC) Additional Instructions: 1. Continue Cephalexin which you have at home (for osteo of R leg) 2. Continue home medications 3. Follow up with Dr. Montes De Oca as outpatient. Referrals: David Montes De Oca MD [Primary Care Provider] - Bogdan Gibson MD [Staff Provider] - <Marcin Espinoza - Last Filed: 01/08/18 19:23> Provider - Provider Date of Admission: 01/06/18 10:00 Attending physician: Marcin Espinoza MD Primary care physician: David Montes De Oca MD Hospital Course - Lab Results Lab Results: Micro Results 01/07/18 15:50 Sputum Gram Stain - Final 01/07/18 15:50 Sputum Sputum Culture - Preliminary NORMAL ORAL LIZ 01/06/18 03:50 Blood Blood Culture - Preliminary NO GROWTH AFTER 48 HOURS 01/06/18 03:10 Blood Blood Culture - Preliminary NO GROWTH AFTER 48 HOURS Most Recent Lab Values WBC 9.1 10^3/ul (4.5-11.0) D 01/07/18 07:00 RBC 3.74 10^6/uL (3.5-6.1) 01/07/18 07:00 Hgb 10.0 g/dL (12.0-16.0) L 01/07/18 07:00 Hct 30.1 % (36.0-48.0) L 01/07/18 07:00 MCV 80.5 fl (80.0-105.0) 01/07/18 07:00 MCH 26.7 pg (25.0-35.0) 01/07/18 07:00 MCHC 33.2 g/dl (31.0-37.0) 01/07/18 07:00 RDW 21.1 % (11.5-14.5) H 01/07/18 07:00 Plt Count 286 10^3/uL (120.0-450.0) 01/07/18 07:00 MPV 9.2 fl (7.0-11.0) 01/07/18 07:00 Gran % 92.0 % (50.0-68.0) H 01/06/18 02:32 Lymph % (Auto) 3.7 % (22.0-35.0) L 01/06/18 02:32 [place] % (Auto) 2.9 % (1.0-6.0) 01/06/18 02:32 Eos % (Auto) 1.2 % (1.5-5.0) L 01/06/18 02:32 Baso % (Auto) 0.2 % (0.0-3.0) 01/06/18 02:32 Gran # 13.15 (1.4-6.5) H 01/06/18 02:32 Lymph # (Auto) 0.5 (1.2-3.4) L 01/06/18 02:32 [place] # (Auto) 0.4 (0.1-0.6) 01/06/18 02:32 Eos # (Auto) 0.2 (0.0-0.7) 01/06/18 02:32 Baso # (Auto) 0.03 K/mm3 (0.0-2.0) 01/06/18 02:32 Neutrophils % (Manual) 88 % (50.0-70.0) H 01/06/18 02:32 Band Neutrophils % 3 % (0-2) H 01/06/18 02:32 Lymphocytes % (Manual) 7 % (22.0-35.0) L 01/06/18 02:32 Monocytes % (Manual) 1 % (1.0-6.0) 01/06/18 02:32 Eosinophils % (Manual) 1 % (0.0-3.0) 01/06/18 02:32 Platelet Evaluation Normal (NORMAL) 01/06/18 02:32 Anisocytosis (manual) 1+ 01/06/18 02:32 pO2 81 mm/Hg (30-55) H 01/06/18 02:35 VBG pH 7.42 (7.32-7.43) 01/06/18 02:35 VBG pCO2 39.0 (40-60) L 01/06/18 02:35 VBG HCO3 25.3 mmol/l (21-28) 01/06/18 02:35 VBG Total CO2 26.5 mmol.L (22-28) 01/06/18 02:35 VBG O2 Sat (Calc) 96.9 % (40-65) H 01/06/18 02:35 VBG Base Excess 0.8 mmol/L (0.0-2.0) 01/06/18 02:35 VBG Potassium 4.6 mmol/L (3.6-5.2) 01/06/18 02:35 Sodium 127.0 mmol/L (132-148) L 01/06/18 02:35 Chloride 95.0 mmol/L (98-107) L 01/06/18 02:35 Glucose 122 mg/dl (65-105) H 01/06/18 02:35 Lactate 0.9 mmol/L (0.7-2.1) 01/06/18 02:35 FiO2 21.0 % 01/06/18 02:35 Sodium 129 mmol/L (132-148) L 01/07/18 07:00 Potassium 4.0 mmol/L (3.6-5.0) 01/07/18 07:00 Chloride 97 mmol/L (98-107) L 01/07/18 07:00 Carbon Dioxide 23 mmol/L (21-33) 01/07/18 07:00 Anion Gap 13 (10-20) 01/07/18 07:00 BUN 6 mg/dL (7-21) L 01/07/18 07:00 Creatinine 0.5 mg/dl (0.7-1.2) L 01/07/18 07:00 Est GFR ( Amer) > 60 01/07/18 07:00 Est GFR (Non-Af Amer) > 60 01/07/18 07:00 Random Glucose 103 mg/dL (70-110) 01/07/18 07:00 Calcium 8.3 mg/dL (8.4-10.5) L 01/07/18 07:00 Phosphorus 3.6 mg/dL (2.5-4.5) 01/06/18 02:32 Magnesium 1.4 mg/dL (1.7-2.2) L 01/06/18 06:50 Total Bilirubin 0.2 mg/dL (0.2-1.3) 01/07/18 07:00 AST 24 U/L (14-36) 01/07/18 07:00 ALT 20 U/L (7-56) 01/07/18 07:00 Alkaline Phosphatase 69 U/L (38-126) 01/07/18 07:00 Troponin I 0.02 ng/mL 01/06/18 02:32 Total Protein 6.6 g/dL (5.8-8.3) 01/07/18 07:00 Albumin 3.4 g/dL (3.0-4.8) 01/07/18 07:00 Globulin 3.2 gm/dL 01/07/18 07:00 Albumin/Globulin Ratio 1.1 (1.1-1.8) 01/07/18 07:00 Procalcitonin < 0.05 NG/ML (0.19-0.49) L 01/06/18 06:50 Venous Blood Potassium 4.6 mmol/L (3.6-5.2) 01/06/18 02:35 Urine Color Yellow (YELLOW) 01/06/18 04:20 Urine Appearance Clear (CLEAR) 01/06/18 04:20 Urine pH 6.0 (4.7-8.0) 01/06/18 04:20 Ur Specific [place] 1.020 (1.005-1.035) 01/06/18 04:20 Urine Protein 100 mg/dL (<30 mg/dL) H 01/06/18 04:20 Urine Glucose (UA) Negative mg/dL (NEGATIVE) 01/06/18 04:20 Urine Ketones Negative mg/dL (NEGATIVE) 01/06/18 04:20 Urine Blood Small (NEGATIVE) H 01/06/18 04:20 Urine Nitrate Negative (NEGATIVE) 01/06/18 04:20 Urine Bilirubin Negative (NEGATIVE) 01/06/18 04:20 Urine Urobilinogen 0.2 E.U./dL (<1 E.U./dL) 01/06/18 04:20 Ur Leukocyte Esterase Negative Jim/uL (NEGATIVE) 01/06/18 04:20 Urine RBC 1 - 3 /hpf (0-2) 01/06/18 04:20 Urine WBC 0 - 2 /hpf (0-6) 01/06/18 04:20 Ur Epithelial Cells 0 - 2 /hpf (0-5) 01/06/18 04:20 Urine Bacteria Rare (NEG) 01/06/18 04:20 Influenza Typ A,B (EIA) Negative for flu a/b (NEGATIVE) 01/06/18 03:15 Ur L.pneumophila Ag Negative (NEGATIVE) 01/06/18 13:00 - Hospital Course Hospital Course: Pt seen and examined by me. I have reviewed the note by the director medical writing. The case was discusussed and reviewed with the resident. I reviewed the medications and labs. Pt is going to be discharged home on the same meds she was taking. She will f/u with Dr Montes De Oca, her PMD. CT abd and pelvis shows no acute infections.
--- NOTE | 2018-01-08 16:02 | CP.PCM.PN ---
Subjective - Date & Time of Evaluation Date of Evaluation: 01/08/18 Time of Evaluation: 11:25 - Subjective Subjective: No fevers overnight, not in distress, no nausea, no abdominal pain, no diarrhea, cough is somewhat better. Objective - Vital Signs/Intake and Output Vital Signs (last 24 hours): Temp Pulse Resp BP Pulse Ox 98.4 F 62 20 172/71 H 97 01/07/18 21:44 01/07/18 21:44 01/07/18 21:44 01/07/18 21:44 01/07/18 21:44 Intake and Output: 01/07/18 01/08/18 18:59 06:59 Intake Total 1020 540 Balance 1020 540 - Medications Medications: Current Medications Acetaminophen (Tylenol 325mg Tab) 650 mg PO Q4H PRN PRN Reason: Pain, Mild (1-3) Last Admin: 01/07/18 17:39 Dose: 650 mg Aspirin (Aspirin Chewable) 81 mg PO DAILY [facility] Last Admin: 01/07/18 10:34 Dose: 81 mg Atenolol (Tenormin) 100 mg PO DAILY [facility] Last Admin: 01/07/18 10:33 Dose: 100 mg Atorvastatin Calcium (Lipitor) 10 mg PO HS [facility] Last Admin: 01/07/18 21:22 Dose: 10 mg Folic Acid (Folic Acid) 1 mg PO DAILY [facility] Last Admin: 01/07/18 10:34 Dose: 1 mg Guaifenesin (Robitussin) 200 mg PO Q4H PRN PRN Reason: Cough and congestion Last Admin: 01/07/18 22:57 Dose: 200 mg Ceftriaxone Sodium (Rocephin 1 Gram Ivpb) 1 gm in 100 mls @ 100 mls/hr IVPB DAILY [facility]; Protocol Stop: 01/16/18 19:33 Levothyroxine Sodium (Synthroid) 100 mcg PO ACB [facility] Last Admin: 01/07/18 10:33 Dose: 100 mcg Non-Formulary Medication (Fluticasone/Vilanterol [Breo Ellipta 100-25 Mcg Inh]) 1 puff IH DAILY [facility] Last Admin: 01/07/18 10:35 Dose: 1 puff Non-Formulary Medication (Teriparatide [Forteo]) 20 mcg SC DAILY [facility] Last Admin: 01/07/18 10:37 Dose: Not Given - Labs Labs: 01/07/18 07:00 01/07/18 07:00 - Constitutional Appears: No Acute Distress, Chronically Ill - Head Exam Head Exam: NORMAL INSPECTION - ENT Exam ENT Exam: Mucous Membranes Moist - Neck Exam Neck Exam: absent: Meningismus - Respiratory Exam Respiratory Exam: Decreased Breath Sounds - Cardiovascular Exam Cardiovascular Exam: +S1, +S2 - GI/Abdominal Exam GI & Abdominal Exam: Soft. absent: Tenderness Assessment and Plan - Assessment and Plan (Free Text) Plan: Assessment SIRS with fever, source unclear, R/O bronchitis, UTI doubtful COPD cataract HTN arthritis hypothyroidism Plan Follow up urine cx although urinalysis was not suggestive of UTI blood cx are negative reviewed CT chest which does not show pneumonia on Rocephin and can be switched to short course of PO antibiotics with outpatient follow up with PMD
== END 2018-01-08 12:51 | disposition home or self-care (01) | DRG 153 ==
LOC: ED 02:00 → ERH 05:13 → 5RNO 06:58 → OBSVTOIN 10:00
PROVIDERS: ADMIT Internal Medicine Nephrology; ATTEND Internal Medicine Nephrology
DX: J06.9 Acute upper respiratory infection, unspecified (principal); R65.10 Systemic inflammatory response syndrome (SIRS) of non-infectious origin without acute organ dysfunction; M86.9 Osteomyelitis, unspecified; R50.9 Fever, unspecified; I25.10 Atherosclerotic heart disease of native coronary artery without angina pectoris; I10 Essential (primary) hypertension; M06.9 Rheumatoid arthritis, unspecified; E03.9 Hypothyroidism, unspecified; J44.9 Chronic obstructive pulmonary disease, unspecified; H26.9 Unspecified cataract; Z87.891 Personal history of nicotine dependence; Z96.641 Presence of right artificial hip joint; Z96.653 Presence of artificial knee joint, bilateral; Z98.84 Bariatric surgery status

== ENCOUNTER 2018-03-31 05:52 | Day surgery (SDC) | payer MEDICARE ==
[2018-03-26 10:36] VITALS: BMI 34.0
[2018-03-31] MEDS ORDERED: Lidocaine 2% Inj (20ml) ONE (06:40)
[2018-03-31 07:17] VITALS: RESP 20; TEMP 98.3
[2018-03-31] MEDS ORDERED: Midazolam 2 MG/2 ML VIAL ONE (08:19)
[2018-03-31 08:56] VITALS: O2SAT 96
--- NOTE | 2018-03-31 12:25 | CARDCATH ---
PROCEDURE DATE: 03/31/2018 PROCEDURES: Right heart catheterization. INDICATION: Possible pulmonary hypertension. HISTORY: This is a 77-year-old woman with known coronary artery disease and rheumatoid arthritis. She has had progressive dyspnea. An echocardiogram suggested [id number] pulmonary hypertension and documentation of right heart pressure was requested. PROCEDURE: The patient received conscious sedation and local anesthetic was applied to the right groin with 2% lidocaine. Venous access was obtained and a 7-Czech sheath inserted. A Oil Trough-Julito catheter was then advanced and selective pressures obtained in each of the right heart chambers. Cardiac output was measured via thermodilution method. Following the procedure, the Oil Trough-Julito catheter was removed and the venous sheath removed as well. Manual pressure was applied to achieve adequate hemostasis. FINDINGS: The right heart pressures were as follows: The RA mean pressure was 6. The RV pressure was 37/4. The PA pressure was 40/14 with a mean PA pressure of 25. The pulmonary capillary wedge pressure was 14. The cardiac output by thermodilution method was 4.3 L/minute with a cardiac index of 2.4 L/min/m2. CONCLUSIONS: 1. Mildly elevated right heart pressures. 2. Normal cardiac output. RECOMMENDATIONS: Current medical therapy will continue and further plans would be determined by her perch mender with respect to any appropriateness and change in therapy. Shaun Olivas MD cc: Rogelio Newell MD, Octavio Garcia MD, and David Montes De Oca MD
[2018-03-31 12:27] VITALS: BP 148/56; PULSE 64
== END 2018-03-31 12:10 | disposition home or self-care (01) ==
LOC: CATH 05:52
PROVIDERS: ATTEND Internal Medicine Cardiovascular Disease
DX: I27.20 Pulmonary hypertension, unspecified (principal); I25.10 Atherosclerotic heart disease of native coronary artery without angina pectoris; M06.9 Rheumatoid arthritis, unspecified
CPT/HCPCS: 36415; 86850; 86900; 93451; 99152; C1894; J1644; J2250; J3010; J7040

== ENCOUNTER 2018-04-19 17:50 | Emergency (ER) | payer MEDICARE ==
[2018-04-19 19:07] VITALS: BMI 32.0
[2018-04-19 19:12] VITALS: O2SAT 97
--- NOTE | 2018-04-19 21:21 | ED PDOC ---
Arrival/HPI - General Chief Complaint: Lower Extremity Problem/Injury Time Seen by Provider: 04/19/18 19:24 Historian: Patient, Family - History of Present Illness Narrative History of Present Illness (Text): 04/19/18 23:02 77 year old female, with history of multiple lower extremity surgeries, presents to the emergency department complaining of right knee and thigh pain, for 4 days. Patient states she feels her knee is "locking up". Patient denies any fall or trauma. Patient informs taking tylenol with some relief. Patient was recommended to come to the ED for imaging studies, as per family. Patient denies any fevers, chills, headache, dizziness, chest pain, shortness of breath, cough, abdominal pain, nausea, vomiting, diarrhea, back pain, neck pain, or any other complaint. Time/Duration: < week (4 days) Symptom Onset: Gradual Symptom Course: Unchanged Quality: Aching Context: Home Past Medical History - Provider Review Nursing Documentation Reviewed: Yes - Infectious Disease Hx of Infectious Diseases: None - Tetanus Immunization Tetanus Immunization: Unknown - Cardiac Hx Cardiac Disorders: No - Pulmonary Hx Respiratory Disorders: Yes Hx Chronic Obstructive Pulmonary Disease (COPD): Yes Other/Comment: SMOKES CIGARETTES H/O <PPD - Neurological Hx Neurological Disorder: No - HEENT Hx HEENT Disorder: Yes Hx Cataracts: Yes (RIGHT) - Renal Hx Renal Disorder: No - Endocrine/Metabolic Hx Endocrine Disorders: No - Hematological/Oncological Hx Blood Disorders: Yes Hx Blood Transfusions: Yes - Integumentary Hx Dermatological Disorder: No - Musculoskeletal/Rheumatological Hx Musculoskeletal Disorders: Yes (RA) - Gastrointestinal Hx Gastrointestinal Disorders: Yes (COLON CANCER/RECTAL CA) - Genitourinary/Gynecological Hx Genitourinary Disorders: No - Psychiatric Hx Psychophysiologic Disorder: No Hx Substance Use: No - Surgical History Hx Appendectomy: Yes Hx Cholecystectomy: Yes (patient unsure) Other/Comment: colon resection, bilaterAl knee replacement, rt hip replacement/elvin r femur - Anesthesia Hx Anesthesia Reactions: No Hx Malignant Hyperthermia: No - Suicidal Assessment Feels Threatened In Home Enviroment: No Family/Social History - Physician Review Nursing Documentation Reviewed: Yes Family/Social History: No Known Family HX Smoking Status: Former Smoker Hx Alcohol Use: No Hx Substance Use: No Hx Substance Use Treatment: No Allergies/Home Meds Allergies/Adverse Reactions: Allergies vancomycin Allergy (Severe, Verified 01/07/19 19:07) RASH minocycline Allergy (Verified 04/19/18 19:07) RASH facial pigmentation Home Medications: Home Meds Medication Instructions Recorded Confirmed Atenolol 100 mg PO DAILY 12/03/11 04/19/18 Aspirin [Aspirin Chewable] 81 mg PO DAILY 04/23/13 04/19/18 Dexlansoprazole [Dexilant] 30 mg PO DAILY 04/23/13 04/19/18 Teriparatide [Forteo] 20 mcg SC DAILY 10/03/16 04/19/18 Nitroglycerin [Nitrostat] 0.4 mg SL PRN PRN 01/13/17 04/19/18 Cholecalciferol [Vitamin D 1000 IU] 50,000 unit PO Q2W 05/12/17 04/19/18 Folic Acid 1 mg PO DAILY 05/12/17 04/19/18 Levothyroxine [Synthroid] 100 mcg PO DAILY 05/12/17 04/19/18 Simvastatin [Zocor] 20 mg PO DAILY 05/12/17 04/19/18 Cephalexin [cephalexin] 250 mg PO DAILY 03/26/18 04/19/18 Fluticasone/Umeclidin/Vilanter 1 puff IH DAILY 03/26/18 04/19/18 [Trelegy Ellipta 100-62.5-25] Methotrexate 25 mg PO JUAQUIN 03/26/18 04/19/18 amLODIPine [Norvasc] 10 mg PO DAILY 03/26/18 04/19/18 Review of Systems - Physician Review All systems were reviewed & negative as marked: Yes - Review of Systems Constitutional: absent: Fevers, Night Sweats Respiratory: absent: SOB, Cough Cardiovascular: absent: Chest Pain Gastrointestinal: absent: Abdominal Pain, Diarrhea, Nausea, Vomiting Musculoskeletal: Arthralgias (right knee), Myalgias (right thigh). absent: Back Pain, Neck Pain Neurological: absent: Headache, Dizziness Physical Exam Vital Signs Reviewed: Yes Vital Signs Temp Pulse Resp BP Pulse Ox 04/19/18 19:11 98.6 F 52 L 17 146/75 97 Temperature: Afebrile Blood Pressure: Normal Pulse: Bradycardic Respiratory Rate: Normal Appearance: Positive for: Well-Appearing, Non-Toxic, Comfortable Pain Distress: None Mental Status: Positive for: Alert and Oriented X 3 - Systems Exam Head: Present: Atraumatic, Normocephalic Pupils: Present: PERRL Extroacular Muscles: Present: EOMI Conjunctiva: Present: Normal Mouth: Present: Moist Mucous Membranes Neck: Present: Normal Range of Motion Respiratory/Chest: Present: Clear to Auscultation, Good Air Exchange. No: Respiratory Distress, Accessory Muscle Use Cardiovascular: Present: Regular Rate and Rhythm, Normal S1, S2. No: Murmurs Abdomen: No: Tenderness, Distention, Peritoneal Signs Back: Present: Normal Inspection Upper Extremity: Present: Normal Inspection. No: Cyanosis, Edema Lower Extremity: Present: Normal Inspection (RLE and LLE: Well healed surgical scars), Other (Chronic arthritic changes noted in the right knee). No: Edema, Erythema, Temperature Abnormalties (Not warm to touch ) Neurological: Present: GCS=15, CN II-XII Intact, Speech Normal Skin: Present: Warm, Dry, Normal Color. No: Rashes Psychiatric: Present: Alert, Oriented x 3, Normal Insight, Normal Concentration Medical Decision Making ED Course and Treatment: 04/19/18 21:21 Impression: 77 year old female presents with right knee and thigh pain Plan: -- CT right hip -- CT right knee -- Xray right knee -- Reassess and disposition Prior Visits: Notes and results from previous visits were reviewed. Progress Notes: 04/19/18 21:21 CT right Hip, without IV contrast. CLINICAL HISTORY: Right hip pain h/o osteo TECHNIQUE: Axial images were acquired through the right hip without IV contrast. Reformatted images were reviewed. 745.35 mGy-cm COMPARISON: None provided. FINDINGS: BONES: Status post total hip replacement. Hardware appears intact. No evidence of fracture or osteomyelitis. JOINTS: No dislocation. The joint spaces are normal. SOFT TISSUES: The soft tissues are unremarkable. IMPRESSION: 1. Status post total hip replacement. Hardware appears intact. 2. No evidence of fracture or osteomyelitis. CT right Knee, without IV contrast CLINICAL HISTORY: Right knee pain h/o osteo TECHNIQUE: Axial images were acquired through the right knee without IV contrast. Reformatted images were reviewed. 650.09 mGy-cm COMPARISON: None provided. FINDINGS: BONES: Status post ORIF involving distal femur and knee replacement. Hardware appears intact. No evidence of fracture or osteomyelitis. JOINTS: No dislocation. The joint spaces are normal. SOFT TISSUES: The soft tissues are unremarkable. IMPRESSION: 1. Status post ORIF involving distal femur and knee replacement. Hardware appears intact. 2. No evidence of fracture or osteomyelitis. - RAD Interpretation Radiology Orders: 04/19/18 19:51 KNEE W PATELLA RIGHT 3 VIEW [RAD] Stat 04/19/18 19:52 HIP WITHOUT CONTRAST RIGHT [CT] Stat KNEE WITHOUT CONTRAST RIGHT [CT] Stat - Scribe Statement The provider has reviewed the documentation as recorded by the Bi Perdomo Provider Scribe Attestation: All medical record entries made by the Scribe were at my direction and personally dictated by me. I have reviewed the chart and agree that the record accurately reflects my personal performance of the history, physical exam, medical decision making, and the department course for this patient. I have also personally directed, reviewed, and agree with the discharge instructions and disposition. Disposition/Present on Arrival - Present on Arrival Any Indicators Present on Arrival: No History of DVT/PE: No History of Uncontrolled Diabetes: No Urinary Catheter: No History of Decub. Ulcer: No History Surgical Site Infection Following: Orthopedic Procedures - Disposition Have Diagnosis and Disposition been Completed?: Yes Diagnosis: Knee pain Disposition: HOME/ ROUTINE Disposition Time: 21:00 Condition: GOOD Discharge Instructions (ExitCare): Knee Pain (DC) Additional Instructions: TAINA KING, thank you for letting us take care of you today. The emergency medical care you received today was directed at your acute symptoms. If you were prescribed any medication, please fill it and take as directed. It may take several days for your symptoms to resolve. Return to the Emergency Department if your symptoms worsen, do not improve, or if you have any other problems. Please contact your doctor or call one of the physicians/clinics you have been referred to that are listed on the Patient Visit Information form that is included in your discharge packet. Bring any paperwork you were given at [facility] with you along with any medications you are taking to your follow up visit. Our treatment cannot replace ongoing medical care by a primary care provider outside of the emergency department. Thank you for allowing the [facility] team to be part of your care today. Follow up with your orthopedic doctor in 3 days as scheduled for re-evaluation and further management. Prescriptions: Naproxen 500 mg PO Q12 PRN #20 ect PRN Reason: Pain, Moderate (4-7) Referrals: David Montes De Oca MD [Primary Care Provider] - Follow up with primary Forms: [employer] (Yemeni)
[2018-04-19 22:13] VITALS: BP 145/59; PULSE 61; RESP 18; TEMP 98.4
--- NOTE | 2018-04-20 08:31 | CT ---
Date of service: 04/19/2018 PROCEDURE: CT of the right hip without contrast HISTORY: right hip pain h/o osteo COMPARISON: TECHNIQUE: Radiation dose: Total exam DLP = 745.35 mGy-cm. This CT exam was performed using one or more of the following dose reduction techniques: Automated exposure control, adjustment of the mA and/or kV according to patient size, and/or use of iterative reconstruction technique. FINDINGS: Status post right-sided total hip replacement. No evidence of dislocation. No evidence of fracture or loosening. There is no soft tissue edema or hemorrhage. The report concurs with the preliminary [employer] report IMPRESSION: No acute findings
--- NOTE | 2018-04-20 08:35 | CT ---
Date of service: 04/19/2018 PROCEDURE: CT of the right knee without contrast HISTORY: right knee pain h/o osteo COMPARISON: Plain film same day TECHNIQUE: Radiation dose: Total exam DLP = 650.09 mGy-cm. This CT exam was performed using one or more of the following dose reduction techniques: Automated exposure control, adjustment of the mA and/or kV according to patient size, and/or use of iterative reconstruction technique. FINDINGS: Previous internal fixation of a distal femoral fracture as well as a knee replacement. There is no acute fracture or loosening. There is no soft tissue collection or hemorrhage. The report concurs with the preliminary [employer] report IMPRESSION: No acute findings
--- NOTE | 2018-04-20 09:19 | RAD ---
Date of service: 04/19/2018 PROCEDURE: Right Knee Radiographs. HISTORY: ? knee injury COMPARISON: 12/20/2017 FINDINGS: BONES: Status post open reduction and internal fixation distal femoral fracture. There is an old fracture deformity and callus along the medial cortex of the distal femur. No evidence for hardware complications. JOINTS: Status post total cemented knee arthroplasty. JOINT EFFUSION: None. OTHER FINDINGS: None. IMPRESSION: Status post total cemented knee arthroplasty, no acute fracture or dislocation. No hardware complications.
== END 2018-04-19 21:50 | disposition home or self-care (01) ==
LOC: ED 17:50
DX: M25.561 Pain in right knee (principal); Z96.653 Presence of artificial knee joint, bilateral; Z96.641 Presence of right artificial hip joint

== ENCOUNTER 2018-06-15 14:35 | Emergency (ER) | payer MEDICARE ==
[2018-06-15 14:35] VITALS: BMI 32.0
[2018-06-15] MEDS: Albuterol-Ipratrop 3 mg / 0.5 (3 ml) UD IH SCH ×3 (15:51→16:15)
[2018-06-15 15:56] LABS: BASO # 0.02 K/mm3 (0.0-2.0); BASO % 0.2 % (0.0-3.0); EOS # 0.4 (0.0-0.7); EOS % 4.7 % (1.5-5.0); LYMPH # 1.1 (1.2-3.4); LYMPH % 11.4 % (22.0-35.0); MEAN CELL VOLUME 81.6 fl (80.0-105.0); MEAN CORPUSCULAR HGB CONC 31.8 g/dl (31.0-37.0); MEAN PLATELET VOLUME 9.1 fl (7.0-11.0); MONO # 0.3 (0.1-0.6); MONO % 3.2 % (1.0-6.0); RBC 3.85 10^6/uL (3.5-6.1); RED CELL DISTRIBUTION WIDTH 20.9 % (11.5-14.5); WHITE BLOOD COUNT 9.3 10^3/uL (4.5-11.0)
--- NOTE | 2018-06-15 15:58 | ED PDOC ---
Arrival/HPI - General Historian: Patient - History of Present Illness Narrative History of Present Illness (Text): 06/15/18 15:49 77F w/ a PMH of COPD on trilogy ellipta not on home O2 complaining of SOB/ Fevers / Cough x4 days. Patient reported onset thursday night w/ tmax 100.8. No sick contacts, denies any active smoking. Patient does complain of associated fatigue. Patient did report she has been following up w/ Dr. Newell for COPD / Pulm HTN. At time of evaluation no complaints of chest pain, abd pain, n/v/d/c, urinary complaints. Time/Duration: < week Symptom Onset: Gradual Symptom Course: Worsening <Nito Amaral - Last Filed: 06/15/18 18:14> <Mason Contreras - Last Filed: 06/15/18 18:31> - General Chief Complaint: Shortness Of Breath Time Seen by Provider: 06/15/18 15:49 Past Medical History - Provider Review Nursing Documentation Reviewed: Yes - Infectious Disease Hx of Infectious Diseases: None - Tetanus Immunization Tetanus Immunization: Unknown - Reproductive Menopause: Yes - Cardiac Hx Cardiac Disorders: No - Pulmonary Hx Respiratory Disorders: Yes Hx Chronic Obstructive Pulmonary Disease (COPD): Yes Other/Comment: SMOKES CIGARETTES H/O <PPD - Neurological Hx Neurological Disorder: No - HEENT Hx HEENT Disorder: Yes Hx Cataracts: Yes (RIGHT) - Renal Hx Renal Disorder: No - Endocrine/Metabolic Hx Endocrine Disorders: No - Hematological/Oncological Hx Blood Disorders: Yes Hx Blood Transfusions: Yes - Integumentary Hx Dermatological Disorder: No - Musculoskeletal/Rheumatological Hx Musculoskeletal Disorders: Yes (RA) - Gastrointestinal Hx Gastrointestinal Disorders: Yes (COLON CANCER/RECTAL CA) - Genitourinary/Gynecological Hx Genitourinary Disorders: No - Psychiatric Hx Psychophysiologic Disorder: No Hx Substance Use: No - Surgical History Hx Appendectomy: Yes Hx Cholecystectomy: Yes (patient unsure) Other/Comment: colon resection, bilaterAl knee replacement, rt hip replacement/elvin r femur - Anesthesia Hx Anesthesia Reactions: No Hx Malignant Hyperthermia: No - Suicidal Assessment Feels Threatened In Home Enviroment: No <Nito Amaral - Last Filed: 06/15/18 18:14> Family/Social History - Physician Review Nursing Documentation Reviewed: Yes Family/Social History: No Known Family HX Smoking Status: Former Smoker Hx Alcohol Use: No Hx Substance Use: No Hx Substance Use Treatment: No <Nito Amaral - Last Filed: 06/15/18 18:14> Allergies/Home Meds <Nito Amaral - Last Filed: 06/15/18 18:14> <Mason Contreras - Last Filed: 06/15/18 18:31> Allergies/Adverse Reactions: Allergies vancomycin Allergy (Severe, Verified 06/15/18 14:49) RASH minocycline Allergy (Verified 06/15/18 14:49) RASH facial pigmentation Home Medications: Home Meds Medication Instructions Recorded Confirmed Atenolol 100 mg PO DAILY 12/03/11 06/15/18 Aspirin [Aspirin Chewable] 81 mg PO DAILY 04/23/13 06/15/18 Dexlansoprazole [Dexilant] 30 mg PO DAILY 04/23/13 06/15/18 Teriparatide [Forteo] 20 mcg SC DAILY 10/03/16 06/15/18 Nitroglycerin [Nitrostat] 0.4 mg SL PRN PRN 01/13/17 06/15/18 Cholecalciferol [Vitamin D 1000 IU] 50,000 unit PO Q2W 05/12/17 06/15/18 Folic Acid 1 mg PO DAILY 05/12/17 06/15/18 Levothyroxine [Synthroid] 100 mcg PO DAILY 05/12/17 06/15/18 Simvastatin [Zocor] 20 mg PO DAILY 05/12/17 06/15/18 Cephalexin [cephalexin] 250 mg PO DAILY 03/26/18 06/15/18 Fluticasone/Umeclidin/Vilanter 1 puff IH DAILY 03/26/18 06/15/18 [Trelegy Ellipta 100-62.5-25] Methotrexate 25 mg PO JUAQUIN 03/26/18 06/15/18 amLODIPine [Norvasc] 10 mg PO DAILY 03/26/18 06/15/18 Review of Systems - Review of Systems Constitutional: Fatigue, Fevers Eyes: Normal ENT: Normal Respiratory: Cough, Wheezing. absent: Sputum Cardiovascular: Normal. absent: Chest Pain Gastrointestinal: Normal Genitourinary Female: Normal Musculoskeletal: Normal. absent: Arthralgias Skin: Normal Neurological: Normal Endocrine: Normal Hemo/Lymphatic: Normal Psychiatric: Normal <Nito Amaral - Last Filed: 06/15/18 18:14> Physical Exam Vital Signs Temp Pulse Resp BP Pulse Ox 06/15/18 15:00 98.6 F 60 20 166/62 H 100 Temperature: Afebrile Blood Pressure: Hypertensive Pulse: Regular Respiratory Rate: Normal Appearance: Positive for: Well-Appearing, Non-Toxic, Comfortable Pain Distress: None Mental Status: Positive for: Alert and Oriented X 3 - Systems Exam Head: Present: Atraumatic, Normocephalic Pupils: Present: PERRL Extroacular Muscles: Present: EOMI Conjunctiva: Present: Normal Mouth: Present: Moist Mucous Membranes Neck: Present: Normal Range of Motion Respiratory/Chest: Present: Wheezes, Rales, Rhonchi. No: Respiratory Distress Cardiovascular: Present: Regular Rate and Rhythm, Normal S1, S2. No: Murmurs Abdomen: No: Tenderness, Distention, Peritoneal Signs Back: Present: Normal Inspection Upper Extremity: Present: Normal Inspection. No: Cyanosis, Edema Lower Extremity: Present: Normal Inspection. No: Edema Neurological: Present: GCS=15, CN II-XII Intact, Speech Normal Skin: Present: Warm, Dry, Normal Color. No: Rashes Psychiatric: Present: Alert, Oriented x 3, Normal Insight, Normal Concentration <Nito Amaral - Last Filed: 06/15/18 18:14> Vital Signs Temp Pulse Resp BP Pulse Ox 06/15/18 17:00 82 16 136/45 L 100 06/15/18 15:00 98.6 F 60 14 166/62 H 100 <Mason Contreras - Last Filed: 06/15/18 18:31> Medical Decision Making ED Course and Treatment: 06/15/18 16:02 77F w/ a PMH of COPD c/o SOB + Cough + Fevers x4 days COPD exacerbation Etiology most likely Viral URI vs Bronchitis R/o PNA PLAN: CBC/CMP CXR EKG RAPID FLU RAPID STREP DUONEB DECADRON Progress Notes: 06/15/18 18:27 Patient reports decreased complaints of shortness of breath after breathing treatment, feels overall improvement in pulmonary function after duoneb treatments and steroids. CBCCMP within normal limits Chest x-ray less concerning for pneumonia Rapid flu rapid strep negative. Patient is to be discharged home with appropriate follow up with primary care provider as well as from supervisor plate pasting. - RAD Interpretation Radiology Orders: 06/15/18 15:28 CHEST PORTABLE [RAD] Stat - Medication Orders Current Medication Orders: Albuterol/Ipratropium (Duoneb 3 Mg/0.5 Mg (3 Ml) Ud) 3 ml IH Q15M MARIA C Stop: 06/15/18 16:01 Discontinued Medications Dexamethasone (Decadron Inj) 10 mg IVP ONCE ONE Stop: 06/15/18 15:29 <Nito Amaral - Last Filed: 06/15/18 18:14> ED Course and Treatment: 06/15/18 16:02 77 year old female presents to the ED for evaluation of shortness of breath, cough and subjective fever. In agreement with resident note which contains more details about the patient. Patient seen and evaluated with resident. Came up with plan and treatment together. - Lab Interpretations Lab Results: Total Bilirubin 0.3 mg/dL (0.2-1.3) 06/15/18 15:40 AST 28 U/L (14-36) 06/15/18 15:40 ALT 10 U/L (7-56) 06/15/18 15:40 Alkaline Phosphatase 79 U/L (38-126) 06/15/18 15:40 Total Protein 7.2 g/dL (5.8-8.3) 06/15/18 15:40 Albumin 3.9 g/dL (3.0-4.8) 06/15/18 15:40 Globulin 3.3 gm/dL 06/15/18 15:40 Albumin/Globulin Ratio 1.2 (1.1-1.8) 06/15/18 15:40 - RAD Interpretation Radiology Orders: 06/15/18 15:28 CHEST PORTABLE [RAD] Stat - Medication Orders Current Medication Orders: Discontinued Medications Albuterol/Ipratropium (Duoneb 3 Mg/0.5 Mg (3 Ml) Ud) 3 ml IH Q15M MARIA C Stop: 06/15/18 16:01 Last Admin: 06/15/18 16:15 Dose: 3 ml Dexamethasone (Decadron Inj) 10 mg IVP ONCE ONE Stop: 06/15/18 16:01 Last Admin: 06/15/18 16:28 Dose: 10 mg IVP Administration Document 06/15/18 16:28 NILE (Rec: 06/15/18 16:28 [id number]) Charges for Administration # of IVP Administrations 1 <Mason Contreras - Last Filed: 06/15/18 18:31> - PA / [employer] OPERATOR / Resident Statement MIKE has reviewed & agrees with the documentation as recorded. / has examined the patient and agrees with the treatment plan. - Scribe Statement The provider has reviewed the documentation as recorded by the Scribe Angelica Choi. All medical record entries made by the Scribe were at my direction and perso anne dictated by me. I have reviewed the chart and agree that the record accurately reflects my personal performance of the history, physical exam, medical decision making, and the department course for this patient. I have also personally directed, reviewed, and agree with the discharge instructions and disposition. <Mason Contreras - Last Filed: 06/15/18 18:31> Disposition/Present on Arrival - Present on Arrival Any Indicators Present on Arrival: No History of DVT/PE: No History of Uncontrolled Diabetes: No Urinary Catheter: No History of Decub. Ulcer: No History Surgical Site Infection Following: Orthopedic Procedures - Disposition Have Diagnosis and Disposition been Completed?: Yes Disposition Time: 18:20 Patient Plan: Discharge <Nito Amaral - Last Filed: 06/15/18 18:14> <Mason Contreras - Last Filed: 06/15/18 18:31> - Disposition Diagnosis: Bronchitis, URI (upper respiratory infection), COPD exacerbation Disposition: HOME/ ROUTINE Condition: GOOD Discharge Instructions (ExitCare): Acute Bronchitis, Adult (DC), Viral Upper Respiratory Infection, Adult (DC) Additional Instructions: Please follow up with your primary care doctor within one day of discharge Please follow up with your supervisor plate pasting within one day of discharge. TAINA KING, thank you for letting us take care of you today. Your provid er was Mason Contreras DO; Nito Amaral DO and you were treated for shotness of breath/ coughing / fever. The emergency medical care you received today was directed at your acute symptoms. If you were prescribed any medication, please fill it and take as directed. It may take several days for your symptoms to resolve. Return to the Emergency Department if your symptoms worsen, do not improve, or if you have any other problems. Please contact your doctor or call one of the physicians/clinics you have been referred to that are listed on the Patient Visit Information form that is included in your discharge packet. Bring any paperwork you were given at discharge with you along with any medications you are taking to your follow up visit. Our treatment cannot replace ongoing medical care by a primary care provider outside of the emergency department. Thank you for allowing the [facility] team to be part of your care today. If you had an X-Ray or CT scan: A Radiologist will review the ED reading if any change in treatment is needed we will contact you. If you had a blood, urine, or wound culture: It will take several days for the results, if any change in treatment is needed we will contact you. If you had an STI test: It will take 48 hours for the results. Please call after 1 week if you have not heard back. Prescriptions: Albuterol 0.083% [Albuterol Sulfate 3 Ml] 3 ml IH Q6H 5 Days #20 vial Benzonatate [Tessalon Perle] 100 mg PO Q8H PRN #15 capsule PRN Reason: Cough Referrals: Rogelio Newell MD [Staff Provider] - Follow up with primary Forms: [employer] (Spanish)
[2018-06-15] MEDS ORDERED: Dexamethasone 4 mg/1 ml IVP ONE (16:00)
[2018-06-15 16:07] LABS: ALB/GLOB RATIO 1.2 (1.1-1.8); ALBUMIN 3.9 g/dL (3.0-4.8); ALT/SGPT 10 U/L (7-56); AST/SGOT 28 U/L (14-36); BLOOD UREA NITROGEN 14 mg/dL (7-21); CALCIUM 9.6 mg/dL (8.4-10.5); GFR NON-AFRICAN AMERICAN > 60
--- NOTE | 2018-06-15 16:07 | RAD ---
Date of service: 06/15/2018 HISTORY: SOB / r/o PNA COMPARISON: 01/06/2018 FINDINGS: LUNGS: No active pulmonary disease. PLEURA: No significant pleural effusion identified, no pneumothorax apparent. CARDIOVASCULAR: No aortic atherosclerotic calcification present. Normal cardiac size. No pulmonary vascular congestion. OSSEOUS STRUCTURES: No significant abnormalities. VISUALIZED UPPER ABDOMEN: Normal. OTHER FINDINGS: None. IMPRESSION: No active disease.
[2018-06-15 16:14] LABS: INFLUENZA A B NEGATIVE FOR FLU A/B (NEGATIVE)
[2018-06-15 17:09] VITALS: RESP 16
[2018-06-15 18:39] VITALS: BP 145/56; PULSE 74; TEMP 97.9; O2SAT 99
--- NOTE | 2018-06-15 21:16 | CARD ---
APPROVED REPORT Date of service: 06/15/2018 EKG Measurement Heart [id number] <Conclusion> Sinus rhythm with 1st degree AV block Minimal voltage criteria for LVH, may be normal variant T wave abnormalities. No change since previous tracing dated 01/06/18 Abnormal ECG
== END 2018-06-15 18:38 | disposition home or self-care (01) ==
LOC: ED 14:35
DX: J44.1 Chronic obstructive pulmonary disease with (acute) exacerbation (principal); J20.9 Acute bronchitis, unspecified; J44.0 Chronic obstructive pulmonary disease with (acute) lower respiratory infection; Z87.891 Personal history of nicotine dependence
CPT/HCPCS: 71045; 80053; 85025; 87070; 87430; 87804; 93005; 96374; 99284; J1100